=== PATIENT | male | born 1935 | race Caucasian/White ===

== ENCOUNTER 2024-11-25 08:34 | Day surgery (SDC) | payer OTHER, SELFPAY ==
[2024-11-25] VITALS (23 sets, daily range): BP systolic 134–170; BP diastolic 86–132; BMI 27.1
[2024-11-25] MEDS: NSS 242 ML IV (09:50)
--- NOTE | 2024-11-25 10:10 | CONSULT.STRU ---
Consultation
-
Date/Time Consultation Requested: 11/25/2024
Date/Time Consultation Performed: 11/25/2024
Requesting Provider: Mauri King MD
Performing Provider: GAVIN Wu
Reason for Consultation: /TAVR
Patient History
Physicians
Family Physician: Cortes Hedrick MD
Outpatient Black Oxide Operator: Augustin Watts MD
Primary Black Oxide Operator: Augustin Watts MD
History of Present Illness
Mr. Isaacs is a very pleasant 88 yom with a complex medical history including severe , CVA, CKD3, diverticular GIB, AAA repair, RCIA aneurysm repair, (R) CEA, and AFib. His echocardiogram from 07/27/2024 is notable for: EF 50-55%, AV P/M 49/35, NIDA
0.6, DI 0.15, mild MAC, mild MR, mild- moderate TR RVSP 35. From a symptomatology standpoint, pt describes increased KEARNS/SOB, and fatigue that has become worse over the last several weeks. He also states he has LE edema that he manages with
furosemide. Mr. Isaacs denies palpitations, CP, lightheadedness, PND, or claudication. However, he does state [place] and he has found that he has not been able to tolerate that over the last month
d/t fatigue. Discussed the pathophysiology and treatment options of aortic stenosis including SAVR and TAVR. Explained the evaluation process comprising of frequent lab work to monitor renal function, staged CT scan with OID, patient is edentulous
and will not need dental clearance, CT surgical consult, and a heart team meeting. TAVR booklet, prescriptions, appointments, and contact information given to patient. Allowed for and answered questions at bedside.
Past Medical History
Past Medical History: Atrial Fib, CVA/TIA (2020), HTN, Valvular Disease (Aortic stenosis) and Other (HLD, AAA, iliac artery aneurysm, diverticular hemorrhage GIB, hiatal hernia, GERD, renal insufficiency)
Past Surgical History
Past Surgical History: Other (coil embolizxaton diverticular bleed, perc. repair RCIA(04/27), (R) carotid endartectomy (2004), AAA repair (1997))
Dental History
Patient is edentulous
Family History
Mother: at Age (101)
Father: at Age (66) and Cause of (PR)
Family Medical History: CAD, Cancer, Diabetes and Sudden
Social History
Alcohol: Daily (1 beer daily )
Drug: None
Tobacco: Non-Smoker
Personal:
Allergies
Allergy/AdvReac Type Severity Reaction Status Date / Time
Iodinated Contrast Media Allergy 'one big Verified 11/25/24 09:25
lump'
iodine Allergy Hives Verified 11/25/24 09:25
Home Medications
�Medication �Instructions �Recorded �Confirmed �Type
allopurinol 300 mg tablet 300 mg PO DAILY 11/14/21 11/25/24 History
atenolol 25 mg tablet 37.5 mg PO DAILY 11/14/21 11/25/24 History
cyanocobalamin (vitamin B-12) 1,000 mcg PO QPM 11/14/21 11/25/24 History
1,000 mcg tablet
ezetimibe 10 mg tablet 10 mg PO HS 11/14/21 11/25/24 History
finasteride 5 mg tablet 5 mg PO DAILY 11/14/21 11/25/24 History
furosemide 40 mg tablet 40 mg PO SUTUTHSA 11/14/21 11/25/24 History
pantoprazole 40 mg tablet,delayed 40 mg PO DAILY 11/14/21 11/25/24 History
release
potassium chloride 10 mEq 10 meq PO QPM 11/14/21 11/25/24 History
tablet,extended release(part/cryst)
tamsulosin 0.4 mg capsule 0.4 mg PO DAILY 11/14/21 11/25/24 History
atenolol 25 mg tablet 25 mg PO DAILY 11/25/24 11/25/24 History
atorvastatin 10 mg tablet 10 mg PO QPM 11/25/24 11/25/24 History
folic acid 1 tab PO QPM 11/25/24 11/25/24 History
STS%
STS %: 9.6
Review of Systems
-
History Source: Patient
General: Reports Fatigue
HEENT: Reports No Symptoms
Respiratory: Reports SOB and KEARNS
Cardiac: Reports Known Vascular Disease and Edema
Abdomen/GI: Reports No Symptoms
: Reports Frequency
Musculoskeletal: Reports No Symptoms
Skin: Reports No Symptoms
Neurological: Reports CVA ((history))
Physical Exam
Vital Signs
Temp 97.9 F 11/25/24 09:05
Temp route: Oral 11/25/24 09:05
Pulse 109 11/25/24 09:45
Resp Rate 22 11/25/24 09:45
Blood pressure 143/100 11/25/24 09:26
Blood pressure extremity used: Right upper arm 11/25/24 09:05
Position: Lying 11/25/24 09:05
MAP (cuff-Sandy Monitor) 112 11/25/24 09:26
SaO2 96 11/25/24 09:45
Oxygen Mode of Delivery Room air 11/25/24 09:05
Can the patient verbally communicate their pain? Yes 11/25/24 09:05
Actual Weight 80.7 kg 11/25/24 09:24
Body Mass Index (BMI) 27.1 11/25/24 09:24
Labs
11/25/2024
BUN/Cr: 33/1.9
GFR: 33.93
11/23/2024
HH: 9.9/30.6
BUN/Cr: 28/2.14
GFR: 29
Diagnostic Studies
ECHOCARDIOGRAM 07/27/2024
CONCLUSIONS
1. Biatrial enlargement
2. Concentric left ventricular hypertrophy.
3. Probably severe aortic stenosis.
4. Low normal left ventricular systolic function
5. Normal right ventricular systolic function
6. Mild pulmonary hypertension
Aortic Valve
Thickened and calcified, probably trileaflet, aortic valve that exhibits
restricted opening. There is a peak aortic valve gradient of 49 mmHg with a
mean of 35 mmHg. The aortic valve area is calculated at 0.6 cm2. The
dimensionless index is 0.15. These findings are suggestive of severe stenosis.
Procedure Type:�Isolated AVR
Perioperative Outcome Estimate %
Operative Mortality 9.06%
Morbidity & Mortality 20.5%
Stroke 2.28%
Renal Failure 10%
Reoperation 4.78%
Prolonged Ventilation 10.6%
Deep Sternal Wound Infection 0.08%
Long Hospital Stay (>14 days) 14.2%
Short Hospital Stay (<6 days)* 19.7%
Exam
General: Well Developed, Well Nourished, No Apparent Distress and Comfortable
HEENT: Normocephalic
Neck: Trachea Midline
Respiratory: Clear (anteriorly)
Cardiac: Irregular Rhythm and Murmur (II/ PEE)
GI: Soft, Non Tender and Non Distended
Rectal: Deferred by Provider
Skin: Warm and Dry
Neuro: Awake, Alert, Oriented and AO x 3
Extremities: Lower Level Edema
Psych: Calm
Assessment / Plan
-
Aortic Stenosis
Continue with TAVR evaluation
Trend creatinine after contrast
TAVR CT scan (staged w/ OID d/t CKD) 12/13, CONTRAST ALLERGY (RX given)
CT surgical consult (MPT /)
Frailty testing and KCCQ 12 at consult
Dental clearance--pt is edentulous
Will need to initiate aspirin
Heart team discussion
Data Reviewed
-
Ambulatory Technologist: Report Reviewed by me and Discussed with Physician
Echo: Report Reviewed by me and Discussed with Physician
Labs: Labs Reviewed by me
Old Records: Reviewed (Drs. King and Stefanie's office notes)
Total Time Spent with Patient (in minutes): 45
[2024-11-25 10:16] LABS: Blood Urea Nitrogen 33 mg/dl (9-20); Calcium 8.9 mg/dl (8.4-10.2); Carbon Dioxide 25 mmol/L (22-30); Chloride 107 mmol/L (98-107); Estimated Creatinine Clearance 27 ml/min; Glucose 118 mg/dl (70-99); Potassium 4.3 mmol/L (3.5-5.1); Sodium 142 mmol/L (135-145); eGFR 33.93
--- NOTE | 2024-11-25 10:24 | PTCARENOTE ---
Dr King made aware of pt's repeat creatinine 1.9 (2.1 on 11/22/2024). Dr King at pt bedside speaking to pt. No further treatment ordered at this time.
--- NOTE | 2024-11-25 12:30 | PTCARENOTE ---
Pt's diastolic blood pressure is elevated. Instructed pt's right heart pressures are elevated. Lasix IVP ordered to be given. Will follow orders and continue to monitor.
--- NOTE | 2024-11-25 12:35 | PTCARENOTE ---
Gretta ALONSO at pt bedside speaking to pt about TAVR.
[2024-11-25] MEDS: LASIX 40 MG IV (12:36)
--- NOTE | 2024-11-25 13:19 | PTCARENOTE ---
Pt's blood pressure has been 139-161/98-132. Pt denies headache, dizziness, lightheadedness, chest pain and or SOB at this time. Irina Miguel NP made aware. Irina Miguel NP states she spoke to Dr King at only treatment ordered at this time is lasix
(previously given). Will continue to monitor pt.
--- NOTE | 2024-11-25 14:35 | PTCARENOTE ---
Verbal discharge instruction given to pt's daughter in law via telephone (pt's daughter in law on speaker phone with pt at pt bedside. Pt's daughter in law (an RN) also made aware of pt's elevated diastolic blood pressure. Pt's daughter in law
verbalized understanding of above.
--- NOTE | 2024-11-25 15:03 | PTCARENOTE ---
Spoke to Dr King about pt's blood pressure. Dr King states he will be in to speak to pt in about half an hour. Pt and pt's grand daughter made aware. Will continue monitor.
--- NOTE | 2024-11-25 15:45 | PTCARENOTE ---
Dr King at pt bedside assessing pt and speaking to pt. Dr King aware of pt's blood pressures all day. Pt remains asymptomatic at this time. Dr King states he spoke to pt's primary card tape converter operator and a plan is in place. No treatment ordered at
this time. Will continue to monitor.
--- NOTE | 2024-11-25 15:50 | PTCARENOTE ---
Dr King states pt ok for discharge.
--- NOTE | 2024-11-25 15:53 | PTCARENOTE ---
Pt's daughter in law arrived to pt's bedside. Pt's daughter in law aware of pt's blood pressures as well and Dr King evaluated pt. Written discharge instructions, including TAVR instructions, given to pt's daughter in law. Pt's daughter in law
verbalized understanding of instructions given. Questions encouraged and answered.
--- NOTE | 2024-11-25 17:05 | ITS.CL.PN ---
Manager Salt - Procedure Note
Procedure
Procedure Note:
CARDIAC CATHETERIZATION REPORT
Date of Procedure: 11/25/2024
Referring: Dr. Augustin Watts MD
Indication: severe aortic stenosis
PROCEDURE(S)
1. right heart catheterization
2. left heart catheterization
3. coronary angiography
ACCESS
1. 6F right radial artery (closure: radial band)
2. 5F right antecubital vein (closure: manual hemostasis)
CATHETERS
1. 5F [place]
2. 6F JR4
3. 6F JL3.5
4. 6F [place] (valve crossed with Adame wire and JR4 from right radial)
MODERATE SEDATION: 60 minutes of moderate sedation was utilized. An independent medical secretary was present to assist with and help manage the patient's level of consciousness and physiologic status.
ULTRASOUND GUIDED VASCULAR ACCESS (right brachial vein): Ultrasound was utilized for vascular access. The vessel was visualized under ultrasound and noted to be patent. An image of the vessel was stored permanently in the patient's medical record.
Under direct ultrasound guidance, vascular access was obtained using a modified Seldinger technique and a 5 Japanese sheath was placed.
ULTRASOUND GUIDED VASCULAR ACCESS (right radial artery): Ultrasound was utilized for vascular access. The vessel was visualized under ultrasound and noted to be patent. An image of the vessel was stored permanently in the patient's medical record.
Under direct ultrasound guidance, vascular access was obtained using a modified Seldinger technique and a 6 Japanese sheath was placed.
HEMODYNAMIC DATA
LV 180/22 (EDP 32) mmHg
AO 165/122 (mean 141) mmHg
RA 27 mmHg
RV 62/18 (EDP 22) mmHg
PA 65/36 (49) mmHg
PCWP 35 mmHg
SaO2 95.2 %
SvO2 50.6 %
Hb 10.0 g/dL
CO/CI 4.0/2.1 L/min/m2
SVR 2272 dsc*-5
PVR 3.5 Wood units
MG (averaged over 5 beats) 28 mmHg
NIDA 0.73 cm2
SVI 23.7 (HR 87)
CORONARY ANGIOGRAPHY
Dominance: right
LM: Large with mild disease
LAD: Large vessel giving rise to a moderate caliber branching ramus/D1 and and moderate caliber D2. There is mild nonobstructive disease.
LCx: Large vessel with proximal ectasia giving rise to a small OM1, large OM2, and several small LPL branches. There is mild nonobstructive disease.
RCA: Large vessel with a proximal HOSPITAL CLEANING SPECIALIST. There is a large bridging collateral which supplies antegrade flow to the mid to distal RCA. There is competitive flow visualized in the distal vessel. There are robust flmb-to-hferb collaterals filling the
RPL system.
RADIATION: dose 977 mGy; DAP 71.96 Gy*cm2; fluoroscopy time 14.2 min
CONCLUSIONS
1. severely elevated biventricular filling pressures, severe predominantly post-capillary pulmonary hypertension, and mildly reduced cardiac output
2. single vessel obstructive coronary artery disease in a right dominant system with RCA HOSPITAL CLEANING SPECIALIST with robust R-R and L-R collaterals
3. aortic valve study with severe, low-flow low-gradient aortic stenosis (MG 28 mmHg, NIDA 0.73 cm2, SVI 23.7 mL/m2)
RECOMMENDATIONS
1. expectant management after cardiac catheterization via right radial artery approach
2. continue workup for TAVR with CTA chest and lower extremities split to reduce contrast load
3. increase Lasix to 80 mg PO daily and consider further GDMT for HFpEF including SGLT2i
Copy to: Dr. Augustin Watts MD (back tender cylinder); Dr. Flor Bellamy DO (PCP)
Signed: Mauri King MD, PhD
== END 2024-11-25 16:02 | disposition home or self-care (01) ==
LOC: CATH 08:34
PROVIDERS: Nurse Practitioner; ATTENDING PHYSICIAN Student in an Organized Health Care Education/Training Program; FAMILY PHYSICIAN Family Medicine; OTHER PHYSICIAN Internal Medicine Cardiovascular Disease
DX: I35.0 Nonrheumatic aortic (valve) stenosis (principal); I25.10 Atherosclerotic heart disease of native coronary artery without angina pectoris; I27.29 Other secondary pulmonary hypertension; I25.82 Chronic total occlusion of coronary artery; I50.32 Chronic diastolic (congestive) heart failure; I12.9 Hypertensive chronic kidney disease with stage 1 through stage 4 chronic kidney disease, or unspecified chronic kidney disease; N18.30 Chronic kidney disease, stage 3 unspecified; I48.91 Unspecified atrial fibrillation; Z86.73 Personal history of transient ischemic attack (TIA), and cerebral infarction without residual deficits; Z86.79 Personal history of other diseases of the circulatory system; R53.83 Other fatigue; R06.09 Other forms of dyspnea; R06.02 Shortness of breath; Z79.899 Other long term (current) drug therapy; R60.0 Localized edema; E78.5 Hyperlipidemia, unspecified; K21.9 Gastro-esophageal reflux disease without esophagitis; I72.3 Aneurysm of iliac artery; Z87.19 Personal history of other diseases of the digestive system; Z83.3 Family history of diabetes mellitus; Z82.49 Family history of ischemic heart disease and other diseases of the circulatory system; Z91.041 Radiographic dye allergy status
CPT/HCPCS: 99152; 99153; 76937; 80048; 93460; C1769; C1894; Q9967

== ENCOUNTER 2024-12-13 08:36 | Outpatient (RCR) | payer OTHER, SELFPAY ==
[2024-12-13 08:46] VITALS: BP 126/90
--- NOTE | 2024-12-13 11:05 | PTCARENOTE ---
After patient arrived and IV started patient stated that did not take premeds for CT scan. Pt handed RN script that was never filled for prednisone dose series and benadryl for prior to CT scan. Spoke with Elizabeth Roman NP and was instructed that
Pt would have to have CT scan rescheduled. Reviewed need to have Pt take pre meds when rescheduled with both Pt and son.
== END 2024-12-16 23:59 | disposition home or self-care (01) ==
LOC: OID 08:36
PROVIDERS: ATTENDING PHYSICIAN Nurse Practitioner Acute Care
DX: I35.0 Nonrheumatic aortic (valve) stenosis (principal); Z92.89 Personal history of other medical treatment; Z53.09 Procedure and treatment not carried out because of other contraindication

== ENCOUNTER 2024-12-23 07:29 | Outpatient (RCR) | payer OTHER, SELFPAY ==
[2024-12-23] MEDS: NSS 500 IV (08:39)
[2024-12-23 08:43] VITALS: BP 136/79
[2024-12-23 11:25] VITALS: BP 143/100
== END 2024-12-26 08:59 | disposition home or self-care (01) ==
LOC: OID 07:29
PROVIDERS: ATTENDING PHYSICIAN Nurse Practitioner Acute Care
DX: I35.0 Nonrheumatic aortic (valve) stenosis (principal); I48.91 Unspecified atrial fibrillation
CPT/HCPCS: 96360; 96361

== ENCOUNTER → 2024-12-23 09:09 | Outpatient (REF) | payer OTHER, SELFPAY | LOC: RAD 09:09 | PROVIDERS: ATTENDING PHYSICIAN Nurse Practitioner Acute Care | DX: I35.0 Nonrheumatic aortic (valve) stenosis (principal) | CPT/HCPCS: 75572; Q9967 ==

== ENCOUNTER 2025-01-06 08:26 | Outpatient (RCR) | payer OTHER, SELFPAY ==
[2025-01-06 08:45] VITALS: BP 138/91
[2025-01-06] MEDS: NSS 500 IV (09:00)
== END 2025-01-16 23:59 | disposition home or self-care (01) ==
LOC: OID 08:26
PROVIDERS: ATTENDING PHYSICIAN Nurse Practitioner Acute Care; FAMILY PHYSICIAN Family Medicine
DX: I35.0 Nonrheumatic aortic (valve) stenosis (principal)
CPT/HCPCS: 96360; 96361

== ENCOUNTER → 2025-01-06 09:58 | Outpatient (REF) | payer OTHER, SELFPAY | LOC: RAD 09:58 | PROVIDERS: ATTENDING PHYSICIAN Nurse Practitioner Acute Care | DX: I35.0 Nonrheumatic aortic (valve) stenosis (principal) | CPT/HCPCS: 74174; Q9967 ==

== ENCOUNTER 2025-02-09 09:34 | Inpatient (IN) | payer OTHER, SELFPAY ==
--- NOTE | 2025-02-02 07:24 | HPS.HSE ---
Family Physician
-
Family Physician: Flor Bellamy, DO
Chief Complaint
-
KEARNS/Fatigue
PreTAVR evaluation
History of Present Illness
Mr. Isaacs is a very pleasant 88 yom with a complex medical history including severe , CVA, CKD3, diverticular GIB, AAA repair, RCIA aneurysm repair, (R) CEA, and AFib. His echocardiogram from 07/27/2024 is notable for: EF 50-55%, AV P/M 49/35, NIDA
0.6, DI 0.15, mild MAC, mild MR, mild- moderate TR RVSP 35. From a symptomatology standpoint, pt describes increased KEARNS/SOB, and fatigue that has become worse over the last several weeks. He also states he has LE edema that he manages with
furosemide. Mr. Isaacs denies palpitations, CP, lightheadedness, PND, or claudication. However, he does state he would socialize at the [employer] frequently with his friends and he has found that he has not been able to tolerate that over the last month
d/t fatigue. Discussed the pathophysiology and treatment options of aortic stenosis including SAVR and TAVR. Patient has been evaluated by the heart team and recommended for left transfemoral TAVR utilizing a 29mmS3. He is scheduled for TAVR on
02/09/2025. Mr. Isaacs will be premedicated with prednisone for contrast allergy and he will resume 81mg aspirin post TAVR. Allowed for and answered questions to the best on my knowledge.
Medical History
Past Medical History
Past Medical History: Reports Arrhythmia (Afib), GERD (with esophagitis), HTN, Valvular Disease (aortic stenosis) and Other (hyperlipidemia, AAA, iliac artery aneurysm, diverticular hemorrhage, hiatal hernia, renal insufficiency, anemia, GIB)
Past Surgical History: Reports Other (coil embolization diverticular bleed, percutaneous repair of RCIA aneurysm, right carotid endarterctomy, AAA repair)
Social History
Tobacco: Non-smoker
Alcohol: Daily (1-2 beers)
Drug: None
Personal:
Living: Alone
Employment: Retired
Family History
Family History: Not pertinent
Allergies / Home Medications
Allergies reflects when Allergies were last updated in [facility].
iodinated contrast media
Home Medications with original date entered in [facility]
Allopurinol 300 MG Tablet 1 tablet Orally Once a day
Aspirin 81(Aspirin) 81 MG Tablet Chewable 1 tablet Orally Once a day
Atenolol 25 MG Tablet TAKE 1 AND 1/2 TABLETS ONE TIME DAILY and 1 tablet 25 mg in pm
Atorvastatin Calcium 10 MG Tablet 1 tablet Orally Once a day
B-12 100 MCG Tablet 1 tab Orally Once a day
Finasteride 5 MG Tablet 1 tablet Orally Once a day
Folic Acid 1 MG Tablet 1 tablet Orally Once a day
Furosemide 40 MG Tablet 2 tablet
Potassium Chloride ER 10 MEQ Capsule Extended Release 1/2 tablet Orally Once a Day
predniSONE 20 MG Tablet Take 2 tablets the night before and the morning of the procedure Orally
Protonix(Pantoprazole Sodium) 40 MG Tablet Delayed Release 1 tablet Orally Once a day
Tamsulosin HCl 0.4 MG Capsule 1 capsule Orally Once a day
Allergy/Medication List:
iodinated contrast media, iodine
Review of Systems
-
Constitutional: Reports Fatigue
EENT: Reports No Symptoms
Respiratory: Reports Other (KEARNS)
Cardiac: Reports No Symptoms
Abdomen/GI: Reports No Symptoms
: Reports No Symptoms
Musculoskeletal: Reports No Symptoms
Neurological: Reports No Symptoms
Psych: Reports No Symptoms
Physical Exam
Physical Exam
General: Well Developed, Well Nourished, No Apparent Distress and Comfortable
HEENT: NormoCephalic
Respiratory: Clear
Cardiac: Irregular Rhythm and Murmur (III/)
Breast: Deferred by me
GI: Soft, Non Tender and Non Distended
Rectal: Deferred by Provider
Genito-urinary: Deferred by me
Musculoskeletal: No Edema
Skin: Warm and Dry
Neuro: Awake, Alert and Oriented
Psych: Calm
Data Reviewed
-
Diagnostic Radiology: Report Reviewed by me
CT Scan: Report Reviewed by me and Discussed with Physician (reviewed with the heart team)
Medical Tests (Nuc Med, Echo, EKG etc): Report Reviewed by me and Discussed with Physician (cardiac catheterization and echocardiogram reviewed with the heart team)
Lab Data: Labs Reviewed by me
Old Records: Reviewed
Impression/Plan
-
IMPRESSION/PLAN:
Aortic stenosis
TF TAVR planned for 02/09 utilizing a 29 mm S3 with Drs. North and Christine
Patient will be pre-medicated with prednisone and Benadryl before procedure
Resume aspirin 81 mg post TAVR
POD#1/#30 echocardiogram
Cardiac Rehab consult
[2025-02-02 11:58] VITALS: BMI 29.2
[2025-02-02 12:54] LABS: % Basophils 2.3 % (0-2); % Eosinophils 4.2 % (0-6); % Immature Granulocytes 0.6 % (0-0.5); % Monocytes 12.2 % (1.7-9.3); % Neutrophils 69.7 % (42.2-75.2); Absolute Basophils 0.1 10^3/uL (0-0.2); Absolute Eosinophils 0.2 10^3/uL (0-0.7); Absolute Lymphocytes 0.4 10^3/uL (1.2-3.4); Absolute Monocytes 0.4 10^3/uL (0.1-0.6); Absolute Neutrophils 2.5 10^3/uL (1.4-6.5); Hematocrit 31.3 % (39.0-52.0); Hemoglobin 10.5 g/dL (13.0-18.0); Mean Corp Hgb Conc. 33.5 g/dL (33.0-37.0); Mean Corpuscular Hgb 37.8 pg (27.0-31.0); Mean Corpuscular Volume 112.6 fL (80.0-94.0); Mean Platelet Volume 9.8 fL (7.4-10.4); Platelet Count 173 10^3/uL (130-400); Red Blood Cell Count 2.78 10^6/uL (4.70-6.10); Red Cell Dist. Width 19.7 % (11.5-14.5); White Blood Cell Count 3.5 10^3/uL (4.8-10.8)
[2025-02-02 13:04] LABS: INR 1.21; PT 15.8 Sec (11.4-14.6)
[2025-02-02 13:05] LABS: APTT 31.6 Sec (23.4-35.0)
[2025-02-02 13:06] LABS: Urine Albumin Negative (Neg - Trace); Urine Bilirubin Negative (Negative); Urine Character Clear (Clear); Urine Color Yellow; Urine Glucose Negative (Negative); Urine Ketone Negative (Negative); Urine Leukocyte Negative (Negative); Urine Nitrite Negative (Negative); Urine Occult Blood Negative (Negative); Urine Urobilinogen 3+ (Neg - 1+); Urine pH 6.5 (5.0-9.0)
[2025-02-02 13:12] LABS: ALT (SGPT) 13 U/L (0-50); AST (SGOT) 23 U/L (17-59); Albumin 4.2 g/dl (3.5-5.0); Alkaline Phosphatase 120 U/L (38-126); Blood Urea Nitrogen 32 mg/dl (9-20); Calcium 8.9 mg/dl (8.4-10.2); Carbon Dioxide 29 mmol/L (22-30); Chloride 104 mmol/L (98-107); Direct Bilirubin 1.5 mg/dl (0.0-0.4); Estimated Creatinine Clearance 22 ml/min; Glucose 104 mg/dl (70-99); Potassium 3.8 mmol/L (3.5-5.1); Sodium 143 mmol/L (135-145); Total Bilirubin 4.3 mg/dl (0.2-1.3); Total Protein 6.8 g/dl (6.3-8.2)
[2025-02-02 13:21] LABS: NT-proBNP 6090 pg/ml
--- NOTE | 2025-02-02 13:34 | CM ---
Chart reviewed. Met with the patient in PAT. Reviewed preoperative and postoperative instructions and restrictions, along with showering guidelines. Gave patient TAVR Book. Patient is agreeable to a home visit by CT Transitional RN. Patient is
independent of ADLS, lives alone in a apartment, elevator access, 0 DME. Patient's son lives close by. Plan is for the patient to return home with CT Transitional RN.
[2025-02-02 14:02] LABS: Glycohemoglobin (HgbA1c) 5.6 % (4.0-5.6)
[2025-02-09] VITALS (11 sets, daily range): BP systolic 118–141; BP diastolic 72–105; BMI 29.5
--- NOTE | 2025-02-09 11:29 | W.CVOR.SURPR ---
CVOR Surgeon Immed Pre Op
-
I have examined this patient prior to performance of the scheduled procedure.
The patient's condition is unchanged from the time of the dictated/written History and
Physical and the patient is able to undergo the scheduled procedure.
TF TAVR, Full Rescue
[2025-02-09] MEDS: ANCEF 10 IV ×2 (13:05)
--- NOTE | 2025-02-09 13:46 | CM ---
Chart reviewed. Patient is in the OR today. Patient is independent of ADLS, lives alone in a apartment, elevator access, 0 DME. Plan is for the patient to return home with CT Transitional RN. CM to follow
[2025-02-09 14:29] LABS: ACT-LR - POC 311 Seconds (116-155)
[2025-02-09 14:45] LABS: ACT-LR - POC 216 Seconds (116-155)
[2025-02-09 14:56] LABS: ACT-LR - POC 269 Seconds (116-155)
--- NOTE | 2025-02-09 15:19 | W.PN.CT.SURG ---
CT Surgery Operative Note
-
OPERATIVE REPORT
Preoperative Diagnosis: Severe low flow low gradient aortic valve stenosis, symptomatic
Postoperative Diagnosis: Same
Procedure(s) Performed:
1. Trans femoral TAVR with a 29 mm valve +2 cc (with postdilatation BAV) Jack TAVR valve
Date of Procedure: 02/09/25
Comorbidities:
1. Severe aortic stenosis, low-flow low gradient, depressed left ventricular ejection fraction
2. Peripheral vascular disease
3. Abdominal aortic aneurysm status post repair
4. Hypertension
5. Hyperlipidemia
6. Iliac artery aneurysm
7. Diverticular hemorrhage, contraindication to anticoagulation
8. Atrial fibrillation
9. Hiatal hernia
10. GERD
Cardiac Surgeon: Nima North MD, MS
Compressor Operator: uJde King MD
Anesthesia: Conscious Sedation and Local Analgesia, LMA inserted after deployment of the valve
EBL: 200cc
Products: none
Implant: 29 mm, nominal +2, Jack Layne TAVR valve, SN: Serial #[id number]
Indication(s) for Procedures: 89-year-old male with symptomatic severe aortic stenosis, low-flow low gradient. CT-TAVR protocol revealed acceptable anatomy for TAVR access and implantation.
Start time: 1312hrs
Deployment time: 1439hrs
End time: 1312hrs
Radiation Dose (mGy): 142.05
DAP (cm2.Gy): 142.05
Fluoroscopy time (minutes): 36
Contrast volume (ml): 108 visi
TAVR gradient (mmHg): 4mmHg
Heparin Dose: 6500 + 2000units
Final Valve Positionin/10
Findings: Preoperative LVEF was 40% and was 40% following TAVR with levo at 5. Function was overall stable without new regional wall motion abnormalities or dyskinesia. Following the initial deployment of the 29 mm valve, the valve did not appear
to be evenly shortened and there was a mild to moderate paravalvular leak along the aorto mitral curtain. We opted to reaccessed the valve using a J-wire leaving the device in place. We then crossed the valve and then pushed the device balloon
back across the valve with ease. We then added 2 cc to the balloon and under rapid pacing we reinflated to perform a balloon valvuloplasty with good effect. There is notable shortening of the greater curvature side of the valve. Follow-up
transthoracic echocardiogram demonstrated less paravalvular leak, grade was trace to mild with a mean gradient of 4 across the valve. After all the manipulation, I did develop a bundle branch block requiring intermittent pacing. While he was slow
junctional rhythm, his blood pressure did suffer and required pacing up to a rate of 80. There was some difficulty in threading and tracking of the pigtail catheter from the right radial and so the angiogram was somewhat suboptimal. However when
we dopplered his lower extremities he had equal biphasic signals. There was successful placement of 29 mm, nominal +2 TAVR valve without acute major complications. He did have to have an LMA inserted at the end of the case in order to recruit as
he was somewhat hypoxic, this is planned to be removed following procedure. The temporary pacing wire was left in place as his intermittent pacing was required and a line was left in place as well.
Access:
1. Device -left common femoral artery, perclose x 2
2. Pigtail -right radial plus TR band
3. Transvenous Pacer -right common femoral vein
4. 6 Thai sheath was also inserted initially into the right common femoral artery as our attempted pigtail site where we had difficulty in traversing the stent at the proximal opening
Description of Procedure: The patient was taken to the laboratory technology teacher. Their identity and procedure to be performed were verified and they were positioned supine on the laboratory technology teacher table. Induction via conscious sedation. The patient was then prepped and
draped from chin to thigh in a sterile fashion. A preoperative time-out was performed with all members of the team present. Arterial and venous access was performed using fluoroscopy and ultrasound guidance with micropuncture and Seldinger
technique. Two perclose devices were used on the device side followed by access to the aorta with a stiff wire to facilitate E-sheath placement this was done after serial dilatations and placement of a Lunderquist wire as his [place] iliofemoral
system was very tortuous. Heparin was given. A stiff straight wire and AL-1 catheter was used to cross the aortic valve. The stiff wire was exchanged for a Lunderquist wire as he had very tortuous vessels and we needed the support of a stiffer rail.
The valve was prepped and mounted on to the device carrier. An ACT of >250 was achieved. We verified x 3 that the valve was mounted in the correct orientation with the skirt of the valve directed toward the tip of the device carrier. We advanced the
device into the descending thoracic aorta where the valve was them mounted onto the balloon under fluoroscopy. The device was flexed and advanced over the arch into the root and positioned across the aortic valve. Contrast fluoroscopy was used to
visualize the prosthesis across the valve and to guide positioning. A pigtail catheter in the RCC as used as a guide. We aimed to have the bottom of the device marker at the annular hinge point. The device sheath was pulled back. We performed a
quick pre-deployment time out. The pacer was turned on and had capture. Blood pressure fell accordingly, angiography was done to verify the intended final placement and the valve was deployed with 5 seconds of rapid pacing to nominal volume. The
balloon was deflated and the pacer was turned off. We had recovery of vitals. The device carrier was unflexed and positioned back in the descending thoracic aorta. A transthoracic echocardiogram was performed. There was at least a mild to moderate
degree of paravalvular insufficiency and so we added 2 cc to the device balloon and exchanged the stiff wire for a J-wire. We were able to cross the valve easily with a J-wire and then advanced the device back into the LVOT. We then exchanged the
J-wire for a Super Stiff wire. Under rapid pacing once again we had capture and followed vital signs at this point we inflated the balloon with the additional 2 cc with good visual shortening of the valve. Follow-up transthoracic echocardiogram
demonstrated an improvement in the paravalvular leak. We then brought the device back after on flexing it and placing it in the descending thoracic aorta. The device was removed from the E-Sheath maintaining wire access followed by removal of the
E-sheath as we cinched down the perclose devices. There was acceptable hemostasis. The pigtail was positioned into the descending thoracic aorta however given the tortuosity of his [place] vessels, we were unable to advance the pigtail further down
the towards his bifurcation. Completion aortogram with runoff run-off angiography was performed. There was no obvious stenosis or dissection of bilateral iliofemoral systems. There was acceptable hemostasis of bilateral groins and manual pressure
was held following wire removal. Of note, once the sheath was removed he did have a period in which she was hypotensive and hypoxic requiring LMA intubation in order to recruit. He was responsive to vasoactive agents. Given the intermittent
requirement of pacing, we left the temporary venous pacing wire in place along with the femoral 6 Thai sheath as an arterial line for monitoring.
All instrument, sponge, and needle counts were confirmed to be correct x 2 at the end of the operation. The patient was transferred to the cardiac intensive care unit in stable condition.
I, Dr. Nima North, was present, scrubbed for, and performed all critical elements of this procedure.
Nima North MD
Cardiothoracic Surgeon
[facility]
This operative dictation was created using the [employer] dictation system. Please excuse any grammatical, typographical, or 'sound alike' errors
--- NOTE | 2025-02-09 16:37 | W.PN.UPDATE ---
Update Note
Progress Note Update
Arrived in CVICU status post TAVR #29 Jack with post dilation BAV for paravalvular leak. Patient off Levophed on arrival to CVICU. O2 saturation 98% on nonrebreather, patient weaned to nasal cannula. Right femoral venous sheath with
transvenous pacer at 45 VVI setting. Patient's heart rhythm is chronic atrial fibrillation at 70 bpm underlying with occasional PVCs and couplets. BMP and magnesium pending. Patient with known CKD 3 (baseline creatinine 2.1). Currently holding
amiodarone (chronic A-fib) and beta-denita. Right radial TR band intact. Wean off per protocol. Right femoral A-line intact w/ BP 126/78. .
[2025-02-09 16:43] LABS: Hematocrit 28.4 % (39.0-52.0); Hemoglobin 9.2 g/dL (13.0-18.0); Mean Corp Hgb Conc. 32.4 g/dL (33.0-37.0); Mean Corpuscular Hgb 37.4 pg (27.0-31.0); Mean Corpuscular Volume 115.4 fL (80.0-94.0); Mean Platelet Volume 10.1 fL (7.4-10.4); Platelet Count 147 10^3/uL (130-400); Red Blood Cell Count 2.46 10^6/uL (4.70-6.10); Red Cell Dist. Width 19.6 % (11.5-14.5); White Blood Cell Count 5.5 10^3/uL (4.8-10.8)
[2025-02-09 16:47] LABS: PT 17.7 Sec (11.4-14.6)
[2025-02-09 16:48] LABS: APTT 34.5 Sec (23.4-35.0)
[2025-02-09 16:49] LABS: Blood Urea Nitrogen 32 mg/dl (9-20); Calcium 7.9 mg/dl (8.4-10.2); Carbon Dioxide 26 mmol/L (22-30); Chloride 108 mmol/L (98-107); Estimated Creatinine Clearance 31 ml/min; Glucose 170 mg/dl (70-99); Magnesium 1.7 mg/dl (1.6-2.3); Potassium 4.2 mmol/L (3.5-5.1); Sodium 140 mmol/L (135-145); eGFR 41.44
--- NOTE | 2025-02-09 17:00 | PTCARENOTE ---
Patient received from [facility] at 1610; AAOx1, patient very drowsy; VSS; Afib with PVC's and LBBB on monitor; Transvenous V-wire with initial setting VVI 60/13/0.8 but changed to VVI 30/13/0.8 as per CVNELSON Ortiz; +2 radial and left DP pulses,
Doppler right DP pulse; Shallow respirations; SpO2 97-99 on 6L NC; Hypoactive BS; DTV; Surgical puncture sites intact; TR band on right radial access site; PIVx2; Right venous sheath with KVO infusing; Right femoral arterial site with transducer;
See nursing documentation for further details.
--- NOTE | 2025-02-09 17:00 | ITS.CL.PN ---
Doctor Of Pharmacy - Procedure Note
Procedure
Procedure Note:
TRANSCATHETER AORTIC VALVE REPLACEMENT REPORT
Date of Procedure: 02/05/25
Referring: Dr. Augustin Watts MD
Indication: Severe symptomatic aortic stenosis
Operators: Mauri King MD, PhD (interventional cardiology); Dr. Nima North MD (CT surgery)
Anesthesia: conscious sedation provided by the anesthesia staff
PROCEDURE: transfemoral, transcatheter aortic valve replacement with a Jack Layne S3 Ultra 29 mm valve, post-deployment balloon aortic valvuloplasty was performed with addition 2 ccs of volume
ACCESS:
1. 6F right femoral vein (sutured in place)
2. 6F right common femoral artery (sutured in place)
3. 6F right radial artery (closure: radial band)
3. 16F left common femoral artery (closure: Perclose x2)
HEMODYNAMIC DATA
LV 18 mmHg
PROCEDURE NARRATIVE:
The patient was prepped and draped in standard sterile fashion. Conscious sedation was provided by the anesthesia staff. 6F right femoral vein and right common femoral artery access was obtained with ultrasound guidance using micropuncture technique
with verification of appropriate arteriotomy location via hand injection angiography. A temporary venous pacing wire was advanced via the right femoral vein to the right ventricle under fluoroscopic guidance with appropriate capture verified. A 5F
pigtail catheter could not be advanced via the right common femoral artery due to extreme tortuosity of the right iliac. This was despite use of a Tip wire and JR4 guide catheter. Instead 6 Gabonese right radial artery access was obtained and a 5
Gabonese pigtail seated in the right coronary cusp with angiography performed to verify the coplanar angle.
8F left common femoral artery access was obtained with ultrasound guidance using micropuncture technique with verification of appropriate arteriotomy location via hand injection angiography. The arteriotomy was preclosed with two Perclose sutures
followed by replacement of the 8F sheath. Due to extreme left iliac tortuosity, proximal wire access required use of a JR4 guide catheter and Tip wire later exchanged for a Lunderquist wire to straighten the tortuous segment. The 8F sheath was
removed and the 16F Jack E-sheath was inserted over the Lunderquist wire and into the descending aorta after dilation of the tract with the 16 Gabonese and 18 Gabonese dilators. Heparin 6500 units was given. The AL1 catheter was advanced through the
E-sheath to the level of the ascending aorta. The Lunderquist wire was exchanged for a soft tipped straight wire which was used to cross the aortic valve and deposit the AL1 in the LV apex. A J-wire was used to exchange the AL1 for a pigtail
catheter in the LV and LVEDP was measured. The Lunderquist wire was advanced through the pigtail catheter and seated in the LV apex. ACT was checked and confirmed to be >300 seconds.
The valve was brought to the table with orientation and deployment contrast volume verified. The valve was advanced over the Lunderquist wire and into the descending aorta. The balloon was withdrawn, and the valve was mounted on the balloon. The
valve was advanced over the aortic arch and into the aortic valve annulus. The pusher device was withdrawn. Low volume aortography confirmed valve positioning. The valve was deployed during rapid ventricular pacing. The balloon was walked back to
the descending aorta while leaving the wire in place. The patient was resuscitated by anesthesia with recovery of adequate blood pressure. Telemetry demonstrating new bundle branch block and Afib with slow ventricular response. Aortography
demonstrated good valve positioning, adequate coronary filling, but moderate aortic valve insufficiency. Echocardiography confirmed moderate aortic insufficiency. Mean valve gradient was 4 mmHg. The valve was recrossed with a J-wire through the nose
cone of the device. With careful attention paid to ensure the device was tracking smoothly it was readvanced across the valve after which the J-wire was exchanged for an Amplatz extra-stiff wire. BAV was performed with the delivery sheath balloon
with an extra 2 cc of volume. Afterwards, the balloon and delivery system were removed. Repeat echocardiography demonstrated now trace to mild AI and improvement in mean gradient to 3 mmHg.
The Jack E sheath was removed, and hemostasis obtained with the two Perclose sutures. The patient became relatively hypotensive at this point and bradycardic with slow ventricular response. A long pigtail catheter was used to perform power
injection angiography via the right radial artery of the descending thoracic aorta and iliac system which did not suggest vascular compromise. The patient was relatively hypoxic, and hemodynamics improved with placement of an LMA airway and moderate
dose norepinephrine. Protamine 50 mg was given. The pacemaker was left in place sutured. The right femoral artery sheath was left in place for monitoring.
RADIATION: dose 1236 mGy; DAP 142 Gy*cm2; fluoroscopy time 36.0
CONCLUSIONS
1. successful placement of an Jack Layne 29 mm S3 Ultra transcatheter aortic valve via left transfemoral approach with no acute complications
2. immediate post-deployment TTE demonstrated moderate AI, thus, BAV was performed with the valve delivery balloon with an additional 2 ccs of volume with improvement in AI to trace-mild
Copy to: Dr. Augustin Watts MD (rod mill tender); Dr. Flor Bellamy DO (PCP)
Signed: Mauri King MD, PhD
[2025-02-09] MEDS: NSS 500 VEN SHEATH (17:14)
[2025-02-09] MEDS: CALCIUM GLUCONATE 100 IV (17:59)
[2025-02-09] MEDS: MAGNESIUM SULFATE 100 IV (18:00)
[2025-02-09 18:13] LABS: ACT-LR - POC 128 Seconds (116-155)
--- NOTE | 2025-02-09 18:29 | W.PN.UPDATE ---
Update Note
Progress Note Update
No pacing required, maintaining AF 70-80s. Right femoral TVP wire and sheath removed without difficulty. Hemostasis achieved with manual pressure x 20 minutes.
--- NOTE | 2025-02-09 20:05 | PTCARENOTE ---
Right venous sheath and transvenous V-wire pulled at 1820 by JANINE Ortiz at bedside; Pressure held for 30 minutes; Drainage noted on left femoral arterial site and JANINE Ortiz notified and aware - marked at edges; TR band removed - 4x4
with tegaderm applied
[2025-02-09] MEDS: ANCEF 5 IV (20:32)
--- NOTE | 2025-02-09 22:00 | PTCARENOTE ---
Drainage noted on right femoral venous access site - CVPA Cody notified and aware; No hematoma noted; Patient kept lying flat; Site drainage marked; No further interventions at this time
[2025-02-10] VITALS (23 sets, daily range): BP systolic 75–135; BP diastolic 60–101; PULSE 82; O2SAT 92–98; BMI 29.5; BMI 30.2
--- NOTE | 2025-02-10 00:32 | PTCARENOTE ---
Received pt from previous RN; pt AAOx3 and forgetful at times; A-fib on monitor and VSS; Right Femoral A-line leveled and zeroed; PIV x2 patent; lungs diminished; hypoactive bowel sounds; pt voiding yellow urine; B/L groin sites with old drainage
and no hematoma noted; Left lower extremity pulses positive and Doppler right lower extremity pulse present; B/L radial pulses palpable; no edema noted; see nursing documentation for further details.
--- NOTE | 2025-02-10 01:17 | W.PN.CT ---
Today's Communication / Plan
-
-POD #1
-in PACU on 6 mcg of levophed and NRM, now off both
-post EKG with LBBB & QTc 518 ms.
-R fem TVP sheath DCd
-remains in afib overnight, no bradycardia or pauses
-echo today
-current meds atenolol held, asa, lasix, flomax, allopurinol, finasteride, ppi
-IS/mobilize when art sheath DCd
Assessment / Plan
-
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 North POD #1
Post-deployment TTE demonstrated moderate AI, thus, BAV was performed with the valve delivery balloon with an additional 2 ccs of volume with improvement in AI to trace-mild
1. Severe aortic stenosis, low-flow low gradient, depressed left ventricular ejection fraction
2. Peripheral vascular disease
3. Abdominal aortic aneurysm status post repair
4. Hypertension
5. Hyperlipidemia
6. Iliac artery aneurysm
7. Diverticular hemorrhage, contraindication to anticoagulation
8. Atrial fibrillation
9. Hiatal hernia
10. GERD
Subjective
Procedure
Trans femoral TAVR with a 29 mm valve +2 cc (with postdilatation BAV) Jack TAVR valve
-
Date of Service: February 10, 2025
Objective Data
-
PT 17.7 Sec (11.4-14.6) H 02/09/25 16:25
INR 1.40 02/09/25 16:25
APTT 34.5 Sec (23.4-35.0) 02/09/25 16:25
APTT Cancelled 02/09/25 16:25
Vital Signs
Vital Signs
Temp Pulse Resp BP Pulse Ox
97.6 F 87 13 133/87 99
02/10/25 00:00 02/10/25 00:25 02/10/25 00:25 02/10/25 00:00 02/10/25 00:38
CT Intake/Output/Weight
02/09/25 02/09/25 02/10/25
06:59 18:59 06:59
Intake Total 230 / 740 510 / 740
Output Total 275 / 275
Balance 230 / 465 235 / 465
SaO2: 99
Physical Exam
-
General: Awake, Oriented and AOx3
Cardiovascular: Irregular rate & rhythm, No Murmurs and No Rub
Respiratory: Clear and Equal
Incision: Clean and Weeping
Extremities: No Edema
Biphasic DP signal on RLE
Data Reviewed
-
Lab Results: Results Reviewed
Medications: Active Meds Reviewed
Chest X-Ray: Report Reviewed
ECG: Report Reviewed
--- NOTE | 2025-02-10 03:17 | PTCARENOTE ---
Assessment unchanged; A-fib on monitor and VSS; Labs, EKG and daily weight obtained; pt resting comfortably in bed.
[2025-02-10 03:28] LABS: Hematocrit 29.4 % (39.0-52.0); Hemoglobin 9.9 g/dL (13.0-18.0); Mean Corp Hgb Conc. 33.7 g/dL (33.0-37.0); Mean Corpuscular Hgb 37.1 pg (27.0-31.0); Mean Corpuscular Volume 110.1 fL (80.0-94.0); Platelet Count 163 10^3/uL (130-400); Red Blood Cell Count 2.67 10^6/uL (4.70-6.10); Red Cell Dist. Width 19.2 % (11.5-14.5); White Blood Cell Count 6.4 10^3/uL (4.8-10.8)
[2025-02-10 03:50] LABS: Blood Urea Nitrogen 36 mg/dl (9-20); Calcium 8.6 mg/dl (8.4-10.2); Carbon Dioxide 23 mmol/L (22-30); Chloride 108 mmol/L (98-107); Estimated Creatinine Clearance 28 ml/min; Glucose 151 mg/dl (70-99); Potassium 4.4 mmol/L (3.5-5.1); Sodium 142 mmol/L (135-145); eGFR 35.98
--- NOTE | 2025-02-10 07:39 | W.PN.ANS.POP ---
Anesthesia Post Operative
- Anesthesia Post Op Note
Vital Signs Stable-See Nursing Note: Yes
Airway Patent: Yes
Adequate Pain Control: Yes
Change in Mental Status: No
Current Postoperative Nausea & Vomiting: No
Anesthesia Complications: No
General Anesthetic Recall: No
Unplanned Admission: No
Post Op Hydration Adequate: Yes
[2025-02-10] MEDS: ZYLOPRIM 300 MG PO (09:23)
[2025-02-10] MEDS: FLOMAX 0.4 MG PO (09:23)
[2025-02-10] MEDS: LOW STRENGTH ASPIRIN 81 MG PO (09:23)
[2025-02-10] MEDS: PROSCAR 5 MG PO (09:24)
[2025-02-10] MEDS: PROTONIX 40 MG PO (09:24)
[2025-02-10] MEDS: LASIX 80 MG PO (09:24)
--- NOTE | 2025-02-10 10:21 | CM ---
Chart reviewed. Patient lying in bed. Patient is independent of ADLS, lives alone in a apartment, elevator access, 0 DME. Patient's son lives close by. Plan is for the patient to return home with CT Transitional RN. CM to follow
--- NOTE | 2025-02-10 10:52 | PTCARENOTE ---
Patient received from welder 2nd shift resting in bed, sleepy but arousable, denies pain. Slight intermittent confusion, easily reoriented. Afib via cm, SaO2 @ 94% on RA. Dr. King to bedside, updated to status. RFA sheath, d/c'd by PRASHANT Harley -
distal extremity warm, DP obtainable via doppler. Bedrest maintained. L groin site w/old drainage noted, soft, nontender, distal pulse palp. R wrist site cdi. Patient updated to plan of care, in agreement. See work list for full assessment and
interventions performed.
--- NOTE | 2025-02-10 11:51 | W.PN.UPDATE ---
Update Note
Progress Note Update
Rhythm star monitor given to patient to place after discharge. Reviewed with patient and nursing how to place the monitor, charge it, report symptoms and return after the 14 days. Allowed for and answered questions.
[2025-02-10] MEDS: TENORMIN 25 MG PO (11:59)
--- NOTE | 2025-02-10 12:04 | PTCARENOTE ---
VS obtained, assessment unchanged. B/L groin sites cdi. Patient worked w/CR, ambulated cavazos. PRASHANT Harley updated to VS, advised administer lower dose BB. Patient remains oob in chair, resting comfortably.
--- NOTE | 2025-02-10 12:48 | PTCARENOTE ---
received patient from CVICU, monitor placed Afib, BP 100/66, chair alarm on, patient forgets. left groin, old drainage on dsg. distal pulse by Doppler. right groin dsg. D/I, distal pulse by Doppler, trace edema noted bilaterally. oriented patient to
room and surroundings. patient presently sitting in chair, call gore within reach.
--- NOTE | 2025-02-10 15:12 | PTCARENOTE ---
whenever patient is up ambulating HR goes to the 140's. MD's aware as per CVICU nurse.
--- NOTE | 2025-02-10 19:15 | W.PN.CD ---
Today's Communication / Plan
-
doing well post TAVR
plan for discharge tomorrow with rhythm star monitor given new LBBB
Impression / Plan
-
89 year old man with severe LFLG s/p TV TAVR with 29 Jack Layne S3 Ultra (with +2 cc BAV), now POD #1. Complex procedure from an access standpoint given prior AAA repair and KATINA stenting. Post procedure briefly required LMA, quickly weaned.
Briefly had slow ventricular response post-procedure, never complete heart block. Post-procedure EKG with new LBBB.
Did well overnight. Fem lines removed this morning with hemostasis achieved.
Groin CDI.
Labs stable.
Echo today with stable valve appearance, normal EF.
Plan:
Transition from atenolol to metoprolol given lower blood pressure and to allow more room to titrate rate control
Monitor overnight with plan for discharge tomorrow pending successful ambulation and stable labs
Echo 02/10/2025
Normal LV size and function with no wall motion abnormalities.
LVEF is 55-60% by visual estimation.
Mild concentric left ventricular hypertrophy.
Dilated RV with normal appearing systolic function.
Mild to moderate eccentric mitral regurgitation.
29 mm Jack Layne TAVR. Peak/mean gradients across the aortic valve are 11/4
mmHg.
Trivial aortic regurgitation.
Moderate to severe tricuspid regurgitation.
Estimated pulmonary artery pressure of 45-50 mmHg. Assuming a right atrial
pressure of 3 mmHg.
Compared to prior from February 09, 2025, no significant change.
Physical Exam
Vital Signs/Labs
Vital Signs
Temp Pulse Resp BP Pulse Ox
36.4 C 60 16 105/63 98
02/10/25 18:23 02/10/25 18:23 02/10/25 18:23 02/10/25 15:05 02/10/25 18:23
02/09/25 02/10/25 02/11/25
06:59 06:59 06:59
Actual Weight 79.8 kg
02/10/25 03:12
02/10/25 03:11
PT 17.7 Sec (11.4-14.6) H 02/09/25 16:25
INR 1.40 02/09/25 16:25
APTT 34.5 Sec (23.4-35.0) 02/09/25 16:25
APTT Cancelled 02/09/25 16:25
Magnesium 1.7 mg/dl (1.6-2.3) 02/09/25 16:25
02/02/25
12:10
Yam-I-Ibbiyebqsmq Pept 6090
Physical Exam
Constitutional: No acute distress
Cardiovascular: Rhythm & rate is regular
Respiratory: Respiratory effort normal
Neuro/Psych: AO x 3
Data Reviewed
-
Date of Service: February 10, 2025
Medical Decision Making: Reviewed Test Results
EKG: Tracing Personally Visualized and interpreted
Echo: Tracing Personally Visualized and interpreted
Labs: Labs Reviewed by me
[2025-02-10] MEDS: LOPRESSOR 25 MG PO (19:51)
--- NOTE | 2025-02-10 19:58 | PTCARENOTE ---
Pt OOB to chair, denies pain or SOB, right groin CDI, left groin with some oozing marked from previous shift, no active bleeding noted, no swelling or bruising noted to groin sites, weak PP. A-fib on the monitor with HR 100's to 130-140's with
ambulation, asymtomatic. O2 sat 98% RA. Call gore within reach, chair alarm in place.
[2025-02-11] VITALS (21 sets, daily range): BP systolic 75–124; BP diastolic 47–96
[2025-02-11 04:31] LABS: Ionized Calcium 1.15 mMOL/L (1.15-1.33)
--- NOTE | 2025-02-11 04:53 | W.PN.CT ---
Today's Communication / Plan
-
Plan:
-No major issues overnight. Hemodynamically and neurologically in tact
-BP has been soft postop, improved tolerating BB
-In a-fib with RVR, no pauses. Atenolol switched to Metoprolol per Cardiology
-Postop new LBBB. Chronic a-fib, not on anticoagulation d/t hx of GI bleed, ASA only
-Repeat echo yesterday showed a well seated TAVR, PG/MG 08/22, trivial AI; mild-mod MR, mod-severe TR
-Groin C/D/I
-Cont. current meds (ASA, Lasix, Flomax, Finasteride, Protonix)
-Home today with R[employer]Star heart monitor
Assessment / Plan
-
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 North POD #2
Post-deployment TTE demonstrated moderate AI, thus, BAV was performed with the valve delivery balloon with an additional 2 ccs of volume with improvement in AI to trace-mild
1. Severe aortic stenosis, low-flow low gradient, depressed left ventricular ejection fraction
2. Peripheral vascular disease
3. Abdominal aortic aneurysm status post repair
4. Hypertension
5. Hyperlipidemia
6. Iliac artery aneurysm
7. Diverticular hemorrhage, contraindication to anticoagulation
8. Atrial fibrillation
9. Hiatal hernia
10. GERD
-Acute postop hypotension
-Acute postop new LBBB and prolonged QT
Discussed patient care with: Cardiology, Nursing, Respiratory Therapy, Pharmacy and Care Team
Subjective
Procedure
Trans femoral TAVR with a 29 mm valve +2 cc (with postdilatation BAV) Jack TAVR valve
-
Date of Service: February 11, 2025
Pt c/o mild incisional pain, otherwise feels well
Objective Data
-
Lab Results
02/10/25 03:12
PT 17.7 Sec (11.4-14.6) H 02/09/25 16:25
INR 1.40 02/09/25 16:25
APTT 34.5 Sec (23.4-35.0) 02/09/25 16:25
APTT Cancelled 02/09/25 16:25
Vital Signs
Vital Signs
Temp Pulse Resp BP Pulse Ox
98.1 F 116 18 110/88 97
02/11/25 04:00 02/10/25 22:45 02/11/25 04:00 02/10/25 22:29 02/11/25 04:00
CT Intake/Output/Weight
02/10/25 02/10/25 02/11/25
06:59 18:59 06:59
Intake Total 750 / 980 390 / 390
Output Total 525 / 525 150 / 150
Balance 225 / 455 240 / 240
SaO2: 97 (RA)
Physical Exam
-
General: Awake, Oriented and AOx3
Cardiovascular: Irregular rate & rhythm, No Murmurs, No Rub and No Gallop
Respiratory: Decreased Breath Sounds (at bases, otherwise clear)
Sternum: Stable
Incision: Clean, Dry, Intact and Dressing Intact
Extremities: Other (+trace edema)
Data Reviewed
-
Lab Results: Results Reviewed
Medications: Active Meds Reviewed
Chest X-Ray: Report Reviewed and Image Reviewed
ECG: Report Reviewed and Image Reviewed
[2025-02-11 05:04] LABS: Blood Urea Nitrogen 53 mg/dl (9-20); Calcium 8.4 mg/dl (8.4-10.2); Carbon Dioxide 26 mmol/L (22-30); Chloride 106 mmol/L (98-107); Estimated Creatinine Clearance 24 ml/min; Glucose 96 mg/dl (70-99); Magnesium 2.2 mg/dl (1.6-2.3); Potassium 4.2 mmol/L (3.5-5.1); Sodium 140 mmol/L (135-145)
[2025-02-11] MEDS: CALCIUM GLUCONATE 130 MG IV (05:35)
[2025-02-11] MEDS: PROTONIX 40 MG PO (08:11)
[2025-02-11] MEDS: LASIX 80 MG PO (08:11)
[2025-02-11] MEDS: LOPRESSOR 25 MG PO ×2 (08:12→09:16)
[2025-02-11] MEDS: ZYLOPRIM 300 MG PO (08:12)
[2025-02-11] MEDS: LOW STRENGTH ASPIRIN 81 MG PO (08:12)
[2025-02-11] MEDS: FLOMAX 0.4 MG PO (08:12)
[2025-02-11] MEDS: PROSCAR 5 MG PO (08:12)
--- NOTE | 2025-02-11 10:38 | W.PN.CD ---
Addendum entered and electronically signed by Josesito Salomon MD 02/11/25 13:07:
I saw and examined the patient.
The MANAGER PROTEIN's note was reviewed and I agree with the note.
Comment: f/u Dr Watts; switched atenolol to metop
Original Note:
Today's Communication / Plan
-
possible d/c home with heart monitor today for new LBBB
follow up Dr. Watts as planned
Impression / Plan
-
89 year old man with severe LFLG s/p TV TAVR with 29 Jack Layne S3 Ultra (with +2 cc BAV). Complex procedure from an access standpoint given prior AAA repair and KATINA stenting. Post procedure briefly required LMA, quickly weaned. Briefly had
slow ventricular response post-procedure, never complete heart block. Post-procedure EKG with new LBBB.
s/p TAVR:
-transfemoral TAVR 29mm 02/09/25
-LBBB post procedure, plan for home with monitor
-groins stable
New LBBB:
-monitor stable, OP monitor planned.
HTN:
-stable, low normal at times.
Atrial fibrillation:
-rates elevated, atenolol was transitioned metoprolol was increased.
-not on anticoagulation per primary guest service host secondary to prior GI bleeding and pt declined
CKD3b:
-monitor Cr post contrast/ procedure
Echo 02/10/2025
Normal LV size and function with no wall motion abnormalities.
LVEF is 55-60% by visual estimation.
Mild concentric left ventricular hypertrophy.
Dilated RV with normal appearing systolic function.
Mild to moderate eccentric mitral regurgitation.
29 mm Jack Layne TAVR. Peak/mean gradients across the aortic valve are 11/4
mmHg.
Trivial aortic regurgitation.
Moderate to severe tricuspid regurgitation.
Estimated pulmonary artery pressure of 45-50 mmHg. Assuming a right atrial
pressure of 3 mmHg.
Compared to prior from February 09, 2025, no significant change.
Physical Exam
Vital Signs/Labs
Vital Signs
Temp Pulse Resp BP Pulse Ox
98.3 F 108 22 92/58 97
02/11/25 08:00 02/11/25 09:16 02/11/25 08:00 02/11/25 09:16 02/11/25 08:00
02/10/25 02/11/25 02/12/25
06:59 06:59 06:59
Actual Weight 79.8 kg 79.2 kg
02/10/25 03:12
02/11/25 04:13
PT 17.7 Sec (11.4-14.6) H 02/09/25 16:25
INR 1.40 02/09/25 16:25
APTT 34.5 Sec (23.4-35.0) 02/09/25 16:25
APTT Cancelled 02/09/25 16:25
Magnesium 2.2 mg/dl (1.6-2.3) 02/11/25 04:13
02/02/25
12:10
Upa-Z-Gzpvifsdulz Pept 6090
Physical Exam
Constitutional: No acute distress
Cardiovascular: Pedal edema is absent and Rhythm/rate is irregular
Respiratory: Respiratory effort normal
GI: Soft, Non tender and Normal bowel sounds
Neuro/Psych: AO x 3
Other: Cardiac Device Site (Bilate groins stable, no hematoma)
Data Reviewed
-
Date of Service: February 11, 2025
EKG: Tracing Personally Visualized and interpreted (AF LBBB 11 bpm) and Other (tele: AF 90-100's)
Echo: Report Reviewed by me (Echo 02/10/25 Normal LV size and function with no wall motion abnormalities. LVEF is 55-60% by visual estimation. Mild concentric left ventricular hypertrophy. Dilated RV with normal appearing systolic function.
Mild to moderate eccentric mitral regurgitation. 29 mm Jack Layne TAVR. Peak/m)
Labs: Labs Reviewed by me
--- NOTE | 2025-02-11 16:04 | PTCARENOTE ---
Pt is AOx3, confused at times. bed and chair alarm on and audible. standby assist OOB. Will be discharged later today when son arrives. Afib on tele monitor, VS monitored. Call gore within reach.
--- NOTE | 2025-02-11 17:14 | W.PN.UPDATE ---
Update Note
Progress Note Update
Called to see patient with a 13-second pause. ZOLL pads with pacer backup at 58 bpm added. IV lactated Ringer's at 50 cc an hour started. Patient had 2 additional episodes with [address] pause[address] Drs. Lr and Mary nAne notified. Dr. Titus
notified Dr. Sifuentes for urgent temporary pacemaker wire. Discharge canceled and patient's son updated. Beta-denita on hold. Patient's last meal was breakfast.
--- NOTE | 2025-02-11 17:16 | PTCARENOTE ---
Pt having multiple pauses on tele monitor. pacer pads applied, IVF started. BP monitored q5 minutes. 99% on 2L O2. Dr Salomon at bedside. Son updated on plan. Pt NPO for temporary pacemaker today. Will continue to monitor.
--- NOTE | 2025-02-11 17:51 | ITS.CL.PN ---
Automotive Heavy Mechanic - Procedure Note
Procedure
Procedure Note:
TRANSVENOUS PACEMAKER REPORT
�
Date of Procedure: February 11, 2025
�
Referring: Josesito Salomon
�
PROCEDURES:
1. Temporary transvenous pacemaker via right internal jugular vein using ultrasound guidance.
�
INDICATION: Sinus arrest
�
ACCESS: Right internal jugular vein, 6 Hebrew sheath, under ultrasound guidance using a micropuncture kit
�
PROCEDURE DETAIL: After the usual sterile prep and drape, the right internal jugular site was locally anesthetized and a 6F vascular sheath inserted into the right internal jugular vein using a 5F micro-puncture kit with ultrasound guidance. �Using
fluoroscopic guidance, a 5F balloon-tipped pacing catheter was inserted through the right internal jugular venous sheath into the apex of the right ventricle. �The cables were connected, and settings were adjusted to confirm pacing capture. �The
sheath was sewn into place with the addition of a 'tension loop' at the skin exit site to minimize the risk of accidental dislodgement, and a sterile dressing was applied.
Limited fluoroscopy of the lung bauer revealed no obvious pneumothorax. �The patient was transferred to the CVICU in stable condition.
�
FLUORO: 4.3�min / RADIATION: 41.85mGy
�
CONCLUSIONS
Successful placement of a temporary transvenous pacemaker via right internal jugular venous access which was sutured in place
�
RECOMMENDATIONS
1. Plan for portable chest x-ray to rule out pneumothorax.
2. Repeat chest x-ray in the morning to confirm placement.
3. Plan for likely permanent pacemaker on Thursday, February 13, 2025.
��
Copy to: Josesito Salomon
�
�
--- NOTE | 2025-02-11 18:01 | PTCARENOTE ---
pt left for manager labor delivery. Report given to RN. temporary pacer box sent with pt.
--- NOTE | 2025-02-11 20:30 | PTCARENOTE ---
Patient received from Cardiac Resaw Carriage Operator via bed without difficulty. Patient A+A+Ox3. No neurological deficits noted. Patient with no c/o headache, dizziness or lightheadedness. Temporary Transvenous Pacemaker via right internal jugular venous
access - 6FR sheath - Sutured in place - KVO 0.9% NSS infusing - Bloody drainage noted in Right I.J. catheter sleeve. Pacemaker settings: DDD A-Rate 40/10/0.5 V-Rate 40/20/2.0 - V connected to box. No pacing noted. Atrial Fibrillation with
BBC. Heart rate 90-100's. Patient with no c/o chest pain, pressure or discomfort. Room air. 96%. No c/o SOB. Normoactive bowel sounds. No BM. No c/o nausea. No vomiting. Voiding without difficulty via urinal at bedside. Patient able to
move all extremities without difficulty. Right radial puncture site intact - Positive radial pulse - Positive circulation, sensation and mobility to right upper extremity. Right groin site and left groin site intact - Positive Dorsalis pedis
pulses - Positive circulation, sensation and mobility to bilateral lower extremities. Patient with no c/o back or flank pain. Patient's son at bedside. Assessment as documented.
[2025-02-11 22:23] LABS: Blood Urea Nitrogen 55 mg/dl (9-20); Calcium 8.5 mg/dl (8.4-10.2); Carbon Dioxide 27 mmol/L (22-30); Chloride 105 mmol/L (98-107); Estimated Creatinine Clearance 25 ml/min; Glucose 112 mg/dl (70-99); Magnesium 2.1 mg/dl (1.6-2.3); Sodium 139 mmol/L (135-145); eGFR 31.71
--- NOTE | 2025-02-11 22:30 | PTCARENOTE ---
Patient resting in bed without difficulty watching television. Patient A+A+Ox3. No neurological deficits noted. Lab work collected and sent per PA orders. (BMP + MAG). PA assessed patient's Temporary Transvenous Pacemaker site, settings and
tubing. KVO discontinued due to small amount of bloody drainage in Right I.J. catheter sleeve distal to Right I.J. insertion site. No c/o pain or discomfort. No bloody drainage noted elsewhere. Assessment/Interventions as documented.
[2025-02-12] VITALS (18 sets, daily range): BP systolic 96–138; BP diastolic 53–89; BMI 27.7
--- NOTE | 2025-02-12 00:30 | PTCARENOTE ---
Patient sleeping without difficulty. No further changes from previous assessment.
--- NOTE | 2025-02-12 05:21 | W.PN.CT ---
Today's Communication / Plan
-
Plan:
-No major issues overnight. Hemodynamically and neurologically in tact
-Before d/c home pt had episodes of bradycardia and pauses (22 sec x 2) necessitating cancelation of discharge and placement of temporary PW until PPM can be placed tomorrow
-Pt did not require pacing overnight, rate controlled a-fib
-BB placed on hold until PPM placement
-Postop new LBBB. Chronic a-fib, not on anticoagulation d/t hx of GI bleed, ASA only
-Repeat echo on 03/12 showed a well seated TAVR, PG/MG 08/22, trivial AI; mild-mod MR, mod-severe TR
-Groin C/D/I
-Cont. current meds (ASA, Lasix, Flomax, Finasteride, Protonix)
-F/U AM labs, pending
-PPM placement tomorrow, will make NPO after midnight
Assessment / Plan
-
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 North POD #3
Post-deployment TTE demonstrated moderate AI, thus, BAV was performed with the valve delivery balloon with an additional 2 ccs of volume with improvement in AI to trace-mild
1. Severe aortic stenosis, low-flow low gradient, depressed left ventricular ejection fraction
2. Peripheral vascular disease
3. Abdominal aortic aneurysm status post repair
4. Hypertension
5. Hyperlipidemia
6. Iliac artery aneurysm
7. Diverticular hemorrhage, contraindication to anticoagulation
8. Atrial fibrillation
9. Hiatal hernia
10. GERD
-Acute postop hypotension
-Acute postop new LBBB and prolonged QT
-Acute postop bradycardia with 22sec pause S/P temporary PW placed 02/11/25
Discussed patient care with: Cardiology, Nursing, Respiratory Therapy, Pharmacy and Care Team
Subjective
Procedure
Trans femoral TAVR with a 29 mm valve +2 cc (with postdilatation BAV) Jack TAVR valve
-
Date of Service: February 12, 2025
Pt c/o mild incisional pain, otherwise feels well
Objective Data
-
PT 17.7 Sec (11.4-14.6) H 02/09/25 16:25
INR 1.40 02/09/25 16:25
APTT 34.5 Sec (23.4-35.0) 02/09/25 16:25
APTT Cancelled 02/09/25 16:25
Vital Signs
Vital Signs
Temp Pulse Resp BP Pulse Ox
98.0 F 78 15 104/80 94
02/12/25 00:00 02/12/25 04:05 02/12/25 04:05 02/12/25 04:00 02/12/25 02:15
CT Intake/Output/Weight
02/11/25 02/11/25 02/12/25
06:59 18:59 06:59
Intake Total 960 / 1220 260 / 1220
Output Total 240 / 1140 900 / 1140
Balance 720 / 80 -640 / 80
SaO2: 94 (RA)
Physical Exam
-
General: Awake, Oriented and AOx3
Cardiovascular: Irregular rate & rhythm (a-fib), No Murmurs, No Rub and No Gallop
Respiratory: Decreased Breath Sounds (at bases)
Incision: Clean, Dry, Intact and Dressing Intact
Extremities: Other (+trace edema)
Data Reviewed
-
Lab Results: Results Reviewed
Medications: Active Meds Reviewed
Chest X-Ray: Report Reviewed and Image Reviewed
ECG: Report Reviewed and Image Reviewed
[2025-02-12 05:52] LABS: Hematocrit 25.3 % (39.0-52.0); Hemoglobin 8.6 g/dL (13.0-18.0); Mean Corpuscular Hgb 37.2 pg (27.0-31.0); Mean Corpuscular Volume 109.5 fL (80.0-94.0); Mean Platelet Volume 10.4 fL (7.4-10.4); Platelet Count 125 10^3/uL (130-400); Red Blood Cell Count 2.31 10^6/uL (4.70-6.10); Red Cell Dist. Width 19.1 % (11.5-14.5); White Blood Cell Count 4.6 10^3/uL (4.8-10.8)
--- NOTE | 2025-02-12 06:00 | PTCARENOTE ---
Patient A+A+Ox3. No neurological deficits noted. AM lab work collected and sent. Patient given CHG bath and linens changed. Serosanguineous drainage remains in distal aspect of Right I.J. catheter sleeve. Portable CXR completed. Patient
resting in bed watching television. Assessment/Interventions as documented.
[2025-02-12 06:15] LABS: Blood Urea Nitrogen 53 mg/dl (9-20); Calcium 8.8 mg/dl (8.4-10.2); Carbon Dioxide 30 mmol/L (22-30); Chloride 104 mmol/L (98-107); Estimated Creatinine Clearance 23 ml/min; Glucose 87 mg/dl (70-99); Magnesium 2.2 mg/dl (1.6-2.3); Potassium 3.8 mmol/L (3.5-5.1); Sodium 140 mmol/L (135-145); eGFR 31.71
--- NOTE | 2025-02-12 08:30 | PTCARENOTE ---
Assumed care of patient at 0700. Pt is awake, alert, and oriented. Pt with mild complaints of discomfort at right neck with IJ as well as mild back discomfort. BP 118/89 MAP 97. Pt is currently AFib with BBB HR 80's-90's. Occasional V paced beat
noted. Right IJ temporary transvenous pacer in place. Dr. North at bedside this morning, temp wire now set to VVI 40/20/2. Radial and pedal pulses palpable. Pulse oximetry 93% on room air. Pt tolerating PO. Voiding in urinal. Bilateral groin sites
intact with surgical adhesive and COMMUNICATIONS SENIOR ASSOCIATE. Right radial site intact and HAMIDA. Right IJ transvenous pacer with cordis line has fluid backed into the plastic encasing the sheath insertion, Dr. Sifuentes and Dr. North made aware. Pt is currently resting in bed
with call gore within reach.
[2025-02-12] MEDS: LASIX 80 MG PO (10:12)
[2025-02-12] MEDS: ZYLOPRIM 300 MG PO (10:12)
[2025-02-12] MEDS: LOW STRENGTH ASPIRIN 81 MG PO (10:12)
[2025-02-12] MEDS: PROTONIX 40 MG PO (10:12)
[2025-02-12] MEDS: FLOMAX 0.4 MG PO (10:12)
[2025-02-12] MEDS: TYLENOL 650 MG PO (10:12)
[2025-02-12] MEDS: PROSCAR 5 MG PO (10:12)
--- NOTE | 2025-02-12 11:00 | PTCARENOTE ---
1051 Pt asystolic on monitor. RN to bedside pt unresponsive. Temporary transvenous pacer was unhooked from box. Wire connected to temporary pacing box and began pacing. Pt regained consciousness, neurologically intact. No further interventions
required. BP 138/78 MAP 96. Pulse oximetry 93% on room air. Transvenous pacing settings changed to 60/20/2. Temporary transvenous pacer placed out of patient's reach.
[2025-02-12] MEDS: ZOFRAN 4 MG IV (11:02)
--- NOTE | 2025-02-12 11:58 | W.PN.CD ---
Today's Communication / Plan
-
NPO after midnight PPM tomorrow
Impression / Plan
-
89 year old man with severe LFLG s/p TV TAVR with 29 Jack Layne S3 Ultra (with +2 cc BAV). Complex procedure from an access standpoint given prior AAA repair and KATINA stenting. Post procedure briefly required LMA, quickly weaned. Briefly had
slow ventricular response post-procedure, never complete heart block. Post-procedure EKG with new LBBB.
s/p TAVR:
-transfemoral TAVR 29mm 02/09/25
-LBBB post procedure, plan for home with monitor
-groins stable
New LBBB with subsequent ~ 13 and 20 s pauses:
- PPM tomorrow
- TVP in place
HTN:
-stable, low normal at times.
Atrial fibrillation:
-rates elevated, atenolol was transitioned metoprolol was increased.
-not on anticoagulation per primary order checker packer processer secondary to prior GI bleeding and pt declined
CKD3b:
-monitor Cr post contrast/ procedure
Subjective: A little confused this AM but otherwise feels OK
Echo 02/10/2025
Normal LV size and function with no wall motion abnormalities.
LVEF is 55-60% by visual estimation.
Mild concentric left ventricular hypertrophy.
Dilated RV with normal appearing systolic function.
Mild to moderate eccentric mitral regurgitation.
29 mm Jack Layne TAVR. Peak/mean gradients across the aortic valve are 11/4
mmHg.
Trivial aortic regurgitation.
Moderate to severe tricuspid regurgitation.
Estimated pulmonary artery pressure of 45-50 mmHg. Assuming a right atrial
pressure of 3 mmHg.
Compared to prior from February 09, 2025, no significant change.
Physical Exam
Vital Signs/Labs
Vital Signs
Temp Pulse Resp BP Pulse Ox
98.4 F 86 17 118/89 93
02/12/25 08:00 02/12/25 09:30 02/12/25 09:30 02/12/25 08:00 02/12/25 08:30
02/11/25 02/12/25 02/13/25
06:59 06:59 06:59
Actual Weight 174 lb 9.698 oz 171 lb 11.841 oz
02/12/25 05:04
02/12/25 05:04
PT 17.7 Sec (11.4-14.6) H 02/09/25 16:25
INR 1.40 02/09/25 16:25
APTT 34.5 Sec (23.4-35.0) 02/09/25 16:25
APTT Cancelled 02/09/25 16:25
Magnesium 2.2 mg/dl (1.6-2.3) 02/12/25 05:04
02/02/25
12:10
Ork-K-Lkapcohpfzk Pept 6090
Physical Exam
Constitutional: No acute distress and Comfortable
EENT: Anicteric
Cardiovascular: Rhythm/rate is irregular
Respiratory: Respiratory effort normal and Lungs clear to auscul.
GI: Soft
Neuro/Psych: Alert and Oriented
Data Reviewed
-
Date of Service: February 12, 2025
Medical Decision Making: Reviewed Test Results
EKG: Tracing Personally Visualized and interpreted (af)
Labs: Labs Reviewed by me
--- NOTE | 2025-02-12 16:30 | PTCARENOTE ---
Pt remains AFib with BBB, occasional V-pacing. BP 119/69 MAP 79. Pulse oximetry 94% on room air. No complaints of pain at this time.
--- NOTE | 2025-02-12 20:00 | PTCARENOTE ---
Received pt [facility]. pt is POD #3 from TAVR. Pt received a transvenous pacemaker due to significant pause. plan is for PPM tomorrow 02/13/25. Pt is AAOx4. Afib with occasional Vpacing on monitor. VSS. heart sounds audible, radial and DP pulses
palpable, no edema noted, TVP is set to VVI 60/20/2. lungs clear, diminished at b/l bases, spo2 98% on RA. +BS x4 quadrants, abdomen soft, non tender, pt is NPO after midnight. pt voiding clear yellow urine. surgical sites maintained. right IJ
cordis/TVP maintained, blood present in plastic tubing of TVP, CVPA aware. PIV maintained. call gore within reach. will continue to monitor.
[2025-02-13] VITALS (22 sets, daily range): BP systolic 86–137; BP diastolic 61–118; BMI 27.3
[2025-02-13] MEDS: TYLENOL 650 MG PO (02:54)
[2025-02-13 03:33] LABS: Hematocrit 25.4 % (39.0-52.0); Hemoglobin 8.6 g/dL (13.0-18.0); Mean Corp Hgb Conc. 33.9 g/dL (33.0-37.0); Mean Corpuscular Hgb 37.1 pg (27.0-31.0); Mean Corpuscular Volume 109.5 fL (80.0-94.0); Mean Platelet Volume 10.2 fL (7.4-10.4); Platelet Count 123 10^3/uL (130-400); Red Blood Cell Count 2.32 10^6/uL (4.70-6.10); Red Cell Dist. Width 18.6 % (11.5-14.5); White Blood Cell Count 4.7 10^3/uL (4.8-10.8)
[2025-02-13 03:43] LABS: Blood Urea Nitrogen 51 mg/dl (9-20); Calcium 8.4 mg/dl (8.4-10.2); Carbon Dioxide 28 mmol/L (22-30); Chloride 103 mmol/L (98-107); Estimated Creatinine Clearance 22 ml/min; Glucose 99 mg/dl (70-99); Magnesium 2.2 mg/dl (1.6-2.3); Potassium 3.7 mmol/L (3.5-5.1); Sodium 140 mmol/L (135-145)
--- NOTE | 2025-02-13 04:00 | PTCARENOTE ---
Pt assessment unchanged. tylenol given for pain. labs sent. 40mg of K ordered and given. bed weight obtained
--- NOTE | 2025-02-13 04:01 | W.PN.CT ---
Today's Communication / Plan
-
Plan:
-No major issues overnight. Hemodynamically and neurologically in tact
-Before d/c home on 02/11, pt had episodes of bradycardia and pauses (22 sec x 2) necessitating cancelation of discharge and placement of temporary PW
-NPO for PPM placement today
-BB placed on hold until PPM placement
-Will replete K, 3.7
-Postop new LBBB. Chronic a-fib, not on anticoagulation d/t hx of GI bleed, ASA only
-Repeat echo on 03/12 showed a well seated TAVR, PG/MG /, trivial AI; mild-mod MR, mod-severe TR
-Groin C/D/I
-Cont. current meds (ASA, Lasix, Flomax, Finasteride, Protonix)
-Home likely tomorrow
Assessment / Plan
-
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 North POD #4
Post-deployment TTE demonstrated moderate AI, thus, BAV was performed with the valve delivery balloon with an additional 2 ccs of volume with improvement in AI to trace-mild
1. Severe aortic stenosis, low-flow low gradient, depressed left ventricular ejection fraction
2. Peripheral vascular disease
3. Abdominal aortic aneurysm status post repair
4. Hypertension
5. Hyperlipidemia
6. Iliac artery aneurysm
7. Diverticular hemorrhage, contraindication to anticoagulation
8. Atrial fibrillation
9. Hiatal hernia
10. GERD
-Acute postop hypotension
-Acute postop new LBBB and prolonged QT
-Acute postop bradycardia with 22sec pause S/P temporary PW placed 02/11/25
Discussed patient care with: Cardiology, Nursing, Respiratory Therapy, Pharmacy and Care Team
Subjective
Procedure
Trans femoral TAVR with a 29 mm valve +2 cc (with postdilatation BAV) Jack TAVR valve
-
Date of Service: February 13, 2025
Pt offers no complaints
Objective Data
-
Lab Results
02/13/25 03:10
02/13/25 03:00
PT 17.7 Sec (11.4-14.6) H 02/09/25 16:25
INR 1.40 02/09/25 16:25
APTT 34.5 Sec (23.4-35.0) 02/09/25 16:25
APTT Cancelled 02/09/25 16:25
Vital Signs
Vital Signs
Temp Pulse Resp BP Pulse Ox
98.4 F 95 20 118/67 98
02/13/25 00:00 02/13/25 01:00 02/13/25 01:00 02/13/25 00:00 02/13/25 00:00
CT Intake/Output/Weight
02/12/25 02/12/25 02/13/25
06:59 18:59 06:59
Intake Total 260 / 1220
Output Total 1100 / 1340 950 / 1325 375 / 1325
Balance -840 / -120 -950 / -1325 -375 / -1325
SaO2: 98 (RA)
Physical Exam
-
General: Awake, Oriented and AOx3
Cardiovascular: Irregular rate & rhythm and No Murmurs
Respiratory: Clear
Extremities: Other (+trace edema)
Data Reviewed
-
Lab Results: Results Reviewed
Medications: Active Meds Reviewed
Chest X-Ray: Report Reviewed and Image Reviewed
ECG: Report Reviewed and Image Reviewed
[2025-02-13] MEDS: KCL 40 MEQ PO (04:18)
--- NOTE | 2025-02-13 08:35 | W.PN.CD ---
Today's Communication / Plan
-
PPM today
Impression / Plan
-
89 year old man with severe LFLG s/p TV TAVR with 29 Jack Layne S3 Ultra (with +2 cc BAV). Complex procedure from an access standpoint given prior AAA repair and KATINA stenting. Post procedure briefly required LMA, quickly weaned. Briefly had
slow ventricular response post-procedure, never complete heart block. Post-procedure EKG with new LBBB. On POD #2, patient had new prolonged pauses of ~20 second x2. TVP placed and planned for PPM today.
s/p TAVR:
-transfemoral TAVR 29mm 02/09/25
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
-groins stable
-plan for PPM today
HTN:
-stable, low normal at times.
Atrial fibrillation:
-rates elevated, atenolol was transitioned metoprolol was increased
-not on anticoagulation per primary political reporter secondary to prior GI bleeding, eventual consideration for Watchman
CKD3b:
-monitor Cr post contrast/ procedure
Tele: afib, LBBB, occasional V-pacing (rare single beats)
Subjective: Doing well, no complaints
Echo 02/10/2025
Normal LV size and function with no wall motion abnormalities.
LVEF is 55-60% by visual estimation.
Mild concentric left ventricular hypertrophy.
Dilated RV with normal appearing systolic function.
Mild to moderate eccentric mitral regurgitation.
29 mm Jack Layne TAVR. Peak/mean gradients across the aortic valve are 11/4
mmHg.
Trivial aortic regurgitation.
Moderate to severe tricuspid regurgitation.
Estimated pulmonary artery pressure of 45-50 mmHg. Assuming a right atrial
pressure of 3 mmHg.
Compared to prior from February 09, 2025, no significant change.
Physical Exam
Vital Signs/Labs
Vital Signs
Temp Pulse Resp BP Pulse Ox
36.9 C 95 20 118/67 98
02/13/25 00:00 02/13/25 01:00 02/13/25 01:00 02/13/25 00:00 02/13/25 04:03
02/12/25 02/13/25 02/14/25
06:59 06:59 06:59
Actual Weight 77.9 kg 76.7 kg
02/13/25 03:10
02/13/25 03:00
PT 17.7 Sec (11.4-14.6) H 02/09/25 16:25
INR 1.40 02/09/25 16:25
APTT 34.5 Sec (23.4-35.0) 02/09/25 16:25
APTT Cancelled 02/09/25 16:25
Magnesium 2.2 mg/dl (1.6-2.3) 02/13/25 03:00
02/02/25
12:10
Oiu-B-Ddpaykgayie Pept 6090
Physical Exam
Constitutional: No acute distress
Cardiovascular: Rhythm & rate is regular
Respiratory: Respiratory effort normal
Neuro/Psych: AO x 3
Data Reviewed
-
Date of Service: February 13, 2025
EKG: Tracing Personally Visualized and interpreted
Labs: Labs Reviewed by me
[2025-02-13] MEDS: FLOMAX 0.4 MG PO (09:27)
[2025-02-13] MEDS: LASIX 80 MG PO (09:27)
[2025-02-13] MEDS: LOW STRENGTH ASPIRIN 81 MG PO (09:27)
[2025-02-13] MEDS: ZYLOPRIM 300 MG PO (09:27)
[2025-02-13] MEDS: PROTONIX 40 MG PO (09:27)
[2025-02-13] MEDS: PROSCAR 5 MG PO (09:27)
--- NOTE | 2025-02-13 09:45 | PTCARENOTE ---
assumed care of pt from previous shift RN, betty on tele w HR 90's, VSS. Pt w pacing wire via right IJ cordis set to 60/20/2. + peripheral pulses. Lungs diminished, pox 97% on 2L NC. NPO maintained pre op. PIV to bilateral arms intact. Pt wiped w CHG
pre device. Plan of care reviewed and questions encouraged.
--- NOTE | 2025-02-13 13:53 | ITS.CL.PACE ---
Schedule Planning Manager - Pacemaker Implant
Pacemaker Implant
Procedure Report:
Left Bundle Branch pacing Permanent Pacemaker Placement:
89 yrs old man with severe LFLG s/p TV TAVR with 29 Jack Layne S3 Ultra (with +2 cc BAV). Complex procedure from an access standpoint given prior AAA repair and KATINA stenting. Post procedure briefly required LMA, quickly weaned. Briefly had
slow ventricular response post-procedure, never complete heart block. Post-procedure EKG with new LBBB. On POD #2, patient had new prolonged pauses of ~20 second x2. TVP placed and is here for PPM placement and TVP removal.
Indications:
Severe symptomatic bradycardia, and tachy stefan syndrome
Date of the Procedure:
02/13/25
Pre-Operative Diagnosis:
Severe symptomatic bradycardia, and tachy stefan syndrome
Post-Operative Diagnosis: Severe symptomatic bradycardia, and tachy stefan syndrome
Procedure Performed: Conduction system pacing Pacemaker implantation
Performing Physician:
Ashley Garibay MD
Assistants:
EP staff
Anesthesia:
See anesthesia records
Detailed Description of the Procedure:
The patient was identified using hospital identification and informed consent obtained for the procedure. The risks were explained to the patient and the family including, but not limited to: Bleeding, infection, arrhythmia, stroke,
vascular/cardiac/lung puncture, surgery, pacemaker dependency/device malfunction. All questions were answered.
Anesthesia service provided sedation as reported separately. Antibiotics administered IV for risk of bacterial colonization. After obtaining informed and written consent, the patient was brought to the electrophysiology laboratory.
The initial rhythm was atrial fibrillation.
The left chest was prepped from the nipple to the angle of the jaw with chlorhexidine, and draped following sterile technique in usual routine.�
A surgical pause and time out was performed immediately prior to the procedure with review of her medical history, recent labs, allergies and medications with site of procedure identified and consent noted in the chart. Antibiotics pre operatively
given. All team members concurred.
The left infraclavicular region was prepped and draped in the usual sterile fashion. Local anesthesia was administered subcutaneously using 1% lidocaine / Bupivacaine. The left cephalic vein cutdown was performed with an incision at the
delto-pectoral groove, and vascular sheaths were introduced for lead access. Guidewires were placed and were advanced into the right ventricle and the right atrium.
The guide wire was advanced to the RA and was crossed through the tricuspid valve into the RV. The preformed curved long hemostatic peel away HIS sheath was advanced into the RV cavity. A left bundle pacing wire was advanced into the sheath to the
tip with ventricular signals noted with unipolar manner. The HIS location was identified under guidance of the flouroscopy and the pacing wire signals. The sheath with the pacing lead was moved deeper into the RV cavity on the septum at a more
inferior and distal to the HIS signals.
Once adequate signals were noted on the electrograms of the pacing lead in the sheath with W pattern signals on the RV septum. There was sheath approximation confirmed on NEPALI view and the pacing lead was advanced with clockwise turns into the septal
location. The lead was advanced and clockwise turns were done under fluoroscopic guidance. The septum was engaged and the lead was paced intermittently after every 2-3 turns. The ventricular capture was monitored throughout and the captures
gradually changed from RV pacing to non-selective pacing to LBB pacing with R wave on V1.
With RBBB pattern noted on the pacing lead, it was decided to accept the location as optimal location. The long guiding sheath was cut and removed from the RV without change in lead position, impedance, sensing, or capture. The lead was sutured to
the underlying pectoralis fascia with 2-0 Ethibond stitches.
Then the atrial lead was placed with active fixation to the RAA. The sensing was poor and the lead dislodged with stress testing. Another location was selected and atrial lead placed that again resulted in dislodgement. A third location had the same
effect and the decision was made to proceed with passive lead.
Using a peel away 7Fr sheath, atrial lead was placed in the right atrial appendage with passive fixation. Excellent impedance noted. Sensing was adequate of the atrial fibrillation waves. The threshold could not be tested due to atrial fibrillation.
The leads were attached to the pulse generator in standard configuration with acceptable sensing and threshold parameters. The pocket was created using blunt dissection. Excellent hemostasis achieved. The pocket was irrigated with antibiotic
solution; the pocket was inspected with no active bleeding noted. The device and the leads were placed in the pocket.
The device was anchored to the underlying fascia using 2-0 Ethibond suture.
A TYRX pouch was installed in the pocket around the lead and the generator.
Deep subcutaneous tissues were closed with three layers of 2-0 V Loc sutures; and the dermis was reopposed using a running 4-0 Monocryl subcuticular suture. Sponge counts / sharp counts were appropriate.
Procedure End:
The procedure was tolerated well. Aquacel bandaged was applied.
Estimated Blood loss:
10 cc
Specimens Removed:
No cultures and no specimens were obtained. No intraoperative pathology was identified.
Urine output:
None
Packs / Drains/ Tubes:
None
Instrument / Sponge Count Correct:
Yes
Flouro time:
4.6min / 17 mGy
Complications of the Procedure:
None
Condition of Patient at Time of Transfer:
Hemodynamically stable with no neurological or vascular compromise.
Device information:�
Generator: Mapidy; Model: W1DR01; Serial # [id number]�
����������� Atrial Lead: Mapidy; Model: 4574-53; Serial # [id number]��
����������������������� Measured data in the right atrium was sensing of 0.4 mV, impedance of 418 ohms and threshold not tested due to AF.
����������� RV LBB pacing lead: Medtronic; Model: 3830-69; Serial # [id number]
����������������������� Measured data on the RV lead was sensing of 14.5mV, impedance of 551 ohms and threshold of 1.0 V at 0.4ms.
PROGRAMMING PARAMETERS:�
Stefan parameter settings were DDDR 60-130
����������� Paced AV interval: 180ms
����������� Sensed AV interval: 150 ms.
����������� Rate Adaptive A-V Interval: on
Mode switched to VVI 60 due to AF.
Summary:
Successful implantation of dual chamber MRI compatible conduction system (LBB) pacing Medtronic pacemaker.
Results/Recommendations:
-Please follow up CXR�
1. Please provide patient with adequate pain control�
Instructions to be given to patient:�
- Please follow up with [facility] at [address] [place] [address] ([phone]) to get your wound checked in 2 weeks of your discharge. Then follow with
- Do not wet incision site until after it is evaluated at cardiology clinic. No baths or showers until then. Sponge baths / showers are OK but dab dry the dressing after it is wet.�
- Allow 'steri strips' to fall off on their own�
- Do not lift left elbow above shoulder, particularly with sudden jerking movements, for 1 month�
- Do not lift anything weighing more than 5 pounds with the left arm for 1 month�
- If you notice any fevers, shortness of breath, lightheadedness, chest pain, or worsening swelling in the wound site, please contact the arrhythmia clinic, contact your youth career specialist, or present to the hospital for evaluation.�
Ashley Garibay MD
Electrophysiology
[2025-02-13] MEDS: LR 500 IV (14:58)
--- NOTE | 2025-02-13 16:05 | CM ---
Reviewed chart. Mr. Isaacs was transferred to IVU. Prior to admission he resides alone in an apartment with elevator. Will need to see his current functional level to see if he will have any skilled care needs. He will need auth. withhis insurance
if he will need SNF. Medical work-up in progress. The discharge plan is to return home with a home visit by the Transitional Care Nurse versus SNF/Rehab. if indicated when medically stable.
--- NOTE | 2025-02-13 18:45 | PTCARENOTE ---
~1430: patient out of CCL/EP lab. Pt Aox4 speech garbled, Afib 110s-120s on tele, 98% 6L facemask upon arrive, switched to NC and placed on 4L. Pt denies pain at this time. Limb immobilizer in place. L upper chest incision covered withsteristrips
and aquacel, dressing CDI. R IJ previous sheath site CDI at this time and eccymotic. SBP 80s-90s, 500cc LR bolus given per order. All needs met at this time, call gore within reach.
~1500: O2 weaned to 2L NC, satting 95%
~1630: Patient weaned to RA. LR bolus completed, BP 105/74.
~ 1745: Patient left unit with transport via stretcher for post-op CXR.
~1720: patiennt back to unit from CXR via stretcher.
~3203-3647: Patient in bed. Garbled speech improved as patient woke up from anesthesia. AOx4, RA, Afib 110s-120s. Handoff report given to nightshift RN.
--- NOTE | 2025-02-13 18:47 | PTCARENOTE ---
~5112-9243: Handoff report received from bhavna RN. Pt A x self and place at this time; 93% on RA; SBP 90s-100s. Pt c/o 6/10 back pain, scheduled lidocaine patch applied, pt refuses offer of any other meds at this time. Frequent turning and
repositioning utilized. Foam applied to sacrum and spine and heels. Buttock pink and blanchable. Heels elevated off bed. Purewick in place, perineum cleansed, desenex powder applied. All needs met at this time, call gore within reach.
~4045-3092: Patient in bed at this time. NPO for PPM procedure. gave consent with Dr. Garibay this AM.
~1230: Gave report to EP lab. HR 96 atach at this time.
~1258: Patient has 3.5 second pause, then HR 46, appears junctional. EP lab aware.
~1320: Vanco started, EP lab transfered patient to procedure area. HR remains 46 at this time.
~1530: Received report from labor relations analyst/EP lab.
~1600: Patient back from labor relations analyst/EP with R sided PPM. Site dressed with steristrips and acquacel, CDI at this time, limb immobilizer on. EKG obtained, AV paced at this time rate 60. Call gore within reach.
~1730: Crushed amio in applesauce, patient had difficulty swallowing and said 'it feels stuck,' patient also visibly had difficulty swallowing. Vitamin D2 gel capsule held, Dr. Ennis made aware, verbal order placed for swallow eval.
~7524-6319: Portable chest xray for post-op PPM insertion check. Handoff report given to gibson BUTLER.
[2025-02-13] MEDS: ANCEF 5 IV (19:30)
[2025-02-13] MEDS: LOPRESSOR 25 MG PO (20:26)
--- NOTE | 2025-02-13 23:52 | PTCARENOTE ---
Received patient at change of shift. Afib with a BBB on the monitor, HR in the 100s. L chest pacemaker dressing in place, L arm immobilizer on. Educated pt on activity restrictions, pt verbalizes understanding. No complaints from pt at this time,
call gore within reach.
[2025-02-14] VITALS (47 sets, daily range): BP systolic 73–126; BP diastolic 45–100; PULSE 60–66; BMI 27.1
[2025-02-14] MEDS: ANCEF 5 IV (03:42)
[2025-02-14 04:06] LABS: Hematocrit 27.4 % (39.0-52.0); Hemoglobin 9.2 g/dL (13.0-18.0); Mean Corp Hgb Conc. 33.6 g/dL (33.0-37.0); Mean Corpuscular Hgb 37.1 pg (27.0-31.0); Mean Corpuscular Volume 110.5 fL (80.0-94.0); Mean Platelet Volume 9.7 fL (7.4-10.4); Platelet Count 120 10^3/uL (130-400); Red Blood Cell Count 2.48 10^6/uL (4.70-6.10); Red Cell Dist. Width 19.3 % (11.5-14.5); White Blood Cell Count 4.7 10^3/uL (4.8-10.8)
[2025-02-14 04:34] LABS: Blood Urea Nitrogen 46 mg/dl (9-20); Calcium 8.4 mg/dl (8.4-10.2); Carbon Dioxide 33 mmol/L (22-30); Chloride 103 mmol/L (98-107); Estimated Creatinine Clearance 22 ml/min; Glucose 99 mg/dl (70-99); Magnesium 2.3 mg/dl (1.6-2.3); Potassium 4.1 mmol/L (3.5-5.1); Sodium 139 mmol/L (135-145)
--- NOTE | 2025-02-14 05:09 | W.PN.CT ---
Today's Communication / Plan
-
Plan:
-No major issues overnight. Hemodynamically and neurologically intact
-Before d/c home on 02/11, pt had episodes of bradycardia and pauses (22 sec x 2) necessitating cancelation of discharge and placement of temporary PW
-Pt underwent PPM placement yesterday 02/13. Pocket intact, arm sling applied
-Resumed BB, BP dropped with 25 mg Toprol post PPM yesterday and needed IV fluids, may not be able to increase to home dose of 50 mg BID Toprol
-Postop new LBBB. Chronic a-fib, not on anticoagulation d/t hx of GI bleed, ASA only
-Repeat echo on 03/12 showed a well seated TAVR, PG/MG 08/22, trivial AI; mild-mod MR, mod-severe TR
-Groin C/D/I
-Cont. current meds (ASA, Lasix, Flomax, Finasteride, Protonix)
-PT/OT assessing for Home vs acute rehab/SNF today
Assessment / Plan
-
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 North POD #5
Post-deployment TTE demonstrated moderate AI, thus, BAV was performed with the valve delivery balloon with an additional 2 ccs of volume with improvement in AI to trace-mild
-S/p temporary PW placement, 02/11/25
-S/P PPM placement, 02/13/25
1. Severe aortic stenosis, low-flow low gradient, depressed left ventricular ejection fraction
2. Peripheral vascular disease
3. Abdominal aortic aneurysm status post repair
4. Hypertension
5. Hyperlipidemia
6. Iliac artery aneurysm
7. Diverticular hemorrhage, contraindication to anticoagulation
8. Atrial fibrillation
9. Hiatal hernia
10. GERD
-Acute postop hypotension
-Acute postop new LBBB and prolonged QT
-Acute postop bradycardia with 22sec pause S/P temporary PW placed 02/11/25
Discussed patient care with: Cardiology, Nursing, Respiratory Therapy, Pharmacy and Care Team
Subjective
Procedure
Trans femoral TAVR with a 29 mm valve +2 cc (with postdilatation BAV) Jack TAVR valve
-
Date of Service: February 14, 2025
Pt c/o mild incisional pain, otherwise feels well
Objective Data
-
Lab Results
02/14/25 03:41
02/14/25 03:41
PT 17.7 Sec (11.4-14.6) H 02/09/25 16:25
INR 1.40 02/09/25 16:25
APTT 34.5 Sec (23.4-35.0) 02/09/25 16:25
APTT Cancelled 02/09/25 16:25
Vital Signs
Vital Signs
Temp Pulse Resp BP Pulse Ox
98.6 F 103 18 109/53 95
02/14/25 03:25 02/13/25 20:26 02/14/25 03:25 02/13/25 20:26 02/14/25 03:25
CT Intake/Output/Weight
02/13/25 02/13/25 02/14/25
06:59 18:59 06:59
Output Total 375 / 1325 975 / 975
Balance -375 / -1325 -975 / -975
SaO2: 95 (RA)
Physical Exam
-
General: Awake, Oriented and AOx3
Cardiovascular: Irregular rate & rhythm and No Murmurs
Respiratory: Clear
Sternum: Stable
Incision: Clean, Dry, Intact and Dressing Intact
Extremities: Other (+trace edema)
Data Reviewed
-
Lab Results: Results Reviewed
Medications: Active Meds Reviewed
Chest X-Ray: Report Reviewed and Image Reviewed
ECG: Report Reviewed and Image Reviewed
[2025-02-14] MEDS: CALCIUM GLUCONATE 130 MG IV (05:45)
--- NOTE | 2025-02-14 07:37 | W.PN.CD ---
Today's Communication / Plan
-
- Amiodarone for rate control
- PPM site looks good.
Impression / Plan
-
89 year old man with severe LFLG s/p TV TAVR with 29 Jack Layne S3 Ultra (with +2 cc BAV). Complex procedure from an access standpoint given prior AAA repair and KATINA stenting. Post procedure briefly required LMA, quickly weaned. Briefly had
slow ventricular response post-procedure, never complete heart block. Post-procedure EKG with new LBBB. On POD #2, patient had new prolonged pauses of ~20 second x2. TVP placed and planned for PPM today.
Intermittent heart block
- 22 second pause
- temp wire was placed and was removed after permanent PPM placement
- Medtronic dual chamber - conductin system pacer - 02/13/25
s/p TAVR:
-transfemoral TAVR 29mm 02/09/25
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
-groins stable
-s/p PPM 02/13/25
HTN:
-stable, low normal at times.
Atrial fibrillation:
-rates elevated, Could not tolerated high dose of Metoprolol yesterday
-Still in AF with RVR - does not want anticoagulation
-Will start Amiodarone IV and PO 400 mg BID for a week then plan to continue 200 mg QD for three months.
-not on anticoagulation per primary global clinical leader secondary to prior GI bleeding, eventual consideration for Watchman
CKD3b:
-monitor Cr post contrast/ procedure
Tele: afib, LBBB, occasional V-pacing (rare single beats)
Subjective: Doing well, no complaints
Echo 02/10/2025
Normal LV size and function with no wall motion abnormalities.
LVEF is 55-60% by visual estimation.
Mild concentric left ventricular hypertrophy.
Dilated RV with normal appearing systolic function.
Mild to moderate eccentric mitral regurgitation.
29 mm Jack Layne TAVR. Peak/mean gradients across the aortic valve are 11/4
mmHg.
Trivial aortic regurgitation.
Moderate to severe tricuspid regurgitation.
Estimated pulmonary artery pressure of 45-50 mmHg. Assuming a right atrial
pressure of 3 mmHg.
Compared to prior from February 09, 2025, no significant change.
Physical Exam
Vital Signs/Labs
Vital Signs
Temp Pulse Resp BP Pulse Ox
98.6 F 103 18 109/53 95
02/14/25 03:25 02/13/25 20:26 02/14/25 03:25 02/13/25 20:26 02/14/25 05:15
02/13/25 02/14/25 02/15/25
06:59 06:59 06:59
Actual Weight 76.7 kg
02/14/25 03:41
02/14/25 03:41
PT 17.7 Sec (11.4-14.6) H 02/09/25 16:25
INR 1.40 02/09/25 16:25
APTT 34.5 Sec (23.4-35.0) 02/09/25 16:25
APTT Cancelled 02/09/25 16:25
Magnesium 2.3 mg/dl (1.6-2.3) 02/14/25 03:41
02/02/25
12:10
[id number] Pept 6090
Physical Exam
Constitutional: No acute distress and Comfortable
EENT: Anicteric and Moist mucous membranes
Cardiovascular: JVD pressure is normal, Rhythm/rate is irregular and Systolic murmur present
Respiratory: Respiratory effort normal and Wheeze Absent
GI: Soft, Non tender and Normal bowel sounds
Neuro/Psych: Alert, Oriented and AO x 3
Other: Cardiac Device Site
Data Reviewed
-
Date of Service: February 14, 2025
Medical Decision Making: Reviewed Test Results, Test Interpretation and Review of Case with other Provider
EKG: Tracing Personally Visualized and interpreted
X-Ray/CT/US/MRI/NUC/PET: Image Personally Visualized and interpreted
Labs: Labs Reviewed by me
Old Records: Reviewed
[2025-02-14] MEDS: LASIX 80 MG PO (07:58)
[2025-02-14] MEDS: PROTONIX 40 MG PO (07:58)
[2025-02-14] MEDS: ZYLOPRIM 300 MG PO (07:59)
[2025-02-14] MEDS: PACERONE 400 MG PO ×2 (07:59→21:15)
[2025-02-14] MEDS: PROSCAR 5 MG PO (07:59)
[2025-02-14] MEDS: FLOMAX 0.4 MG PO (07:59)
[2025-02-14] MEDS: LOW STRENGTH ASPIRIN 81 MG PO (08:00)
[2025-02-14] MEDS: LOPRESSOR 25 MG PO (08:00)
[2025-02-14] MEDS: CORDARONE 103 MG IV (08:08)
--- NOTE | 2025-02-14 14:32 | CM ---
Reviewed chart. Met with Mr. Isaacs to review discharge plans. He states prior to admission he resides alone in a first floor apartment without any steps to enter. He states prior to admission he was independent with ambulation and adls. He states
he does not have any DME in the home. He states he has a prescription plan and uses [facility]. We reviewed SNF rehab. at [facility] or [facility] due to being in-network provider. He is not sure he wants to consider
SNF/Rehab. Will see how he does in therapy tomorrow and review SNF/Rehab. again if indicated. Will need pre-cert with his insurance for SNF/Rehab. Medial work-up in progress. The discharge plan is to return home with [facility] versus
SNF/Rehab. if he is agreeable, bed available and approved by insurance when medically stable.
--- NOTE | 2025-02-14 18:45 | PTCARENOTE ---
~3503-4064: Handoff report received from nightshift RN. Pt Aox4, Afib BBB 80s-100s, high 90s RA. pt denies pain at this time. Aquacel dressing on L upper chest from PPM insertion yesterday, minimal old drainage on dressing, arm immobilizer in place
until 1400. Amio bolus given per order, HR then 60s-80. Lasix given per order. Around 0930, patietn OOB with PT and SBP 70s, pt asymptomatic. Rechecked 10 mins later once pt back in bed and BP 91/60, provider made aware. All needs met at this time,
call gore within reach.
~5451-2690: Patient resting in room. Afib 80s BBB. Limb immobilizer off at 1400 per protocol.
~5040-7952: Pt resting, denies pain at this time. VSS. All needs met, call gore within reach. handoff report given to nightshift RN.
[2025-02-14] MEDS: TYLENOL 650 MG PO (21:16)
[2025-02-14] MEDS: TOPROL XL 25 MG PO (21:16)
[2025-02-15] VITALS (12 sets, daily range): BP systolic 76–113; BP diastolic 59–74; PULSE 88; BMI 27.1
--- NOTE | 2025-02-15 01:59 | PTCARENOTE ---
Pt. AAOx3 this shift, VSS, A-fib 80's with some V/AV pacing. Left chest wall pacer site dressing intact with some old drainage (scant), left hand sensation intact, radial pulse WNL. Complaining of some discomfort at pacer site, adequately relieved
by Tylenol. Voiding into urinal without difficulty. Currently sleeping.
[2025-02-15 04:15] LABS: Blood Urea Nitrogen 45 mg/dl (9-20); Calcium 8.4 mg/dl (8.4-10.2); Carbon Dioxide 31 mmol/L (22-30); Chloride 101 mmol/L (98-107); Estimated Creatinine Clearance 20 ml/min; Glucose 101 mg/dl (70-99); Magnesium 2.3 mg/dl (1.6-2.3); Potassium 4.1 mmol/L (3.5-5.1); Sodium 139 mmol/L (135-145); eGFR 26.81
[2025-02-15] MEDS: CALCIUM GLUCONATE 130 MG IV (05:14)
--- NOTE | 2025-02-15 05:40 | W.PN.CT ---
Today's Communication / Plan
-
Plan:
-No major issues overnight. Hemodynamically and neurologically intact
-Before d/c home on 02/11, pt had episodes of bradycardia and pauses (22 sec x 2) necessitating cancelation of discharge and placement of temporary PW
-Pt underwent PPM placement 02/13. Pocket intact, arm sling applied
-Resumed BB, BP dropped again yesterday 02/14 on Lasix and Metoprol Tartrate. Will hold Lasix and switch BB to Metoprolol Succinate 25 BID
-Cardiology have add Amiodarone 400 BID for rate control
-Postop new LBBB. Chronic a-fib, not on anticoagulation d/t hx of GI bleed, ASA only
-Repeat echo on 03/12 showed a well seated TAVR, PG/MG 08/22, trivial AI; mild-mod MR, mod-severe TR
-Groin C/D/I
-Cont. current meds (ASA, Lasix, Flomax, Finasteride, Protonix)
-PT/OT assessing for Home vs acute rehab/SNF today (Son available to pick him up @ 4pm)
Assessment / Plan
-
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 North POD #6
Post-deployment TTE demonstrated moderate AI, thus, BAV was performed with the valve delivery balloon with an additional 2 ccs of volume with improvement in AI to trace-mild
-S/p temporary PW placement, 02/11/25
-S/P PPM placement, 02/13/25
1. Severe aortic stenosis, low-flow low gradient, depressed left ventricular ejection fraction
2. Peripheral vascular disease
3. Abdominal aortic aneurysm status post repair
4. Hypertension
5. Hyperlipidemia
6. Iliac artery aneurysm
7. Diverticular hemorrhage, contraindication to anticoagulation
8. Atrial fibrillation
9. Hiatal hernia
10. GERD
-Acute postop hypotension
-Acute postop new LBBB and prolonged QT
-Acute postop bradycardia with 22sec pause S/P temporary PW placed 02/11/25
Discussed patient care with: Cardiology, Nursing, Respiratory Therapy, Pharmacy and Care Team
Subjective
Procedure
Trans femoral TAVR with a 29 mm valve +2 cc (with postdilatation BAV) Jack TAVR valve
-
Date of Service: February 15, 2025
Pt offers no complaints. Wants to go home and says son will be available to pick him up ~4pm
Objective Data
-
Lab Results
02/14/25 03:41
02/15/25 03:18
PT 17.7 Sec (11.4-14.6) H 02/09/25 16:25
INR 1.40 02/09/25 16:25
APTT 34.5 Sec (23.4-35.0) 02/09/25 16:25
APTT Cancelled 02/09/25 16:25
Vital Signs
Vital Signs
Temp Pulse Resp BP Pulse Ox
97.9 F 94 20 99/69 97
02/15/25 03:12 02/15/25 03:00 02/15/25 03:12 02/15/25 03:02 02/15/25 03:12
CT Intake/Output/Weight
02/14/25 02/14/25 02/15/25
06:59 18:59 06:59
Intake Total 480 / 480
Output Total 900 / 900
Balance -420 / -420
SaO2: 97 (RA)
Physical Exam
-
General: Awake, Oriented and AOx3
Cardiovascular: Regular rate & rhythm, No Murmurs, No Rub and No Gallop
Respiratory: Decreased Breath Sounds (at bases, otherwise clear)
Incision: Clean, Dry and Intact
Extremities: Other (+trace edema)
Data Reviewed
-
Lab Results: Results Reviewed
Medications: Active Meds Reviewed
Chest X-Ray: Report Reviewed and Image Reviewed
ECG: Report Reviewed and Image Reviewed
--- NOTE | 2025-02-15 08:21 | W.PN.CD ---
Today's Communication / Plan
-
- stable and acceptable rate for discharge.
- Amiodarone 400 mg BID for 1 week then 200 mg QD.
- Follow up in EP in 2 weeks.
- Incision check in 1-2 weeks.
Impression / Plan
-
89 year old man with severe LFLG s/p TV TAVR with 29 [place] S3 Ultra (with +2 cc BAV). Complex procedure from an access standpoint given prior AAA repair and KATINA stenting. Post procedure briefly required LMA, quickly weaned. Briefly had
slow ventricular response post-procedure, never complete heart block. Post-procedure EKG with new LBBB. On POD #2, patient had new prolonged pauses of ~20 second x2. TVP placed and planned for PPM today.
Intermittent heart block
- 22 second pause
- temp wire was placed and was removed after permanent PPM placement
- Medtronic dual chamber - conductin system pacer - 02/13/25
s/p TAVR:
-transfemoral TAVR 29mm 02/09/25
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
-groins stable
-s/p PPM 02/13/25
HTN:
-stable, low normal at times.
Atrial fibrillation:
-Currently in AT with short break leading to pacing spikes and then restart of arrhythmia.
- Rates are much improved with Amiodarone and Metoprolol.
- H/o AF with RVR - does not want anticoagulation
-Continue Amiodarone PO 400 mg BID for a week then plan to continue 200 mg QD for three months.
-not on anticoagulation per primary dough panner secondary to prior GI bleeding, eventual consideration for Watchman
CKD3b:
-monitor Cr post contrast/ procedure
Tele: AT, LBBB, occasional V-pacing (rare single beats) with short breaks in AT.
Subjective: Doing well, no complaints
Echo 02/10/2025
Normal LV size and function with no wall motion abnormalities.
LVEF is 55-60% by visual estimation.
Mild concentric left ventricular hypertrophy.
Dilated RV with normal appearing systolic function.
Mild to moderate eccentric mitral regurgitation.
29 mm [place] TAVR. Peak/mean gradients across the aortic valve are 11/4
mmHg.
Trivial aortic regurgitation.
Moderate to severe tricuspid regurgitation.
Estimated pulmonary artery pressure of 45-50 mmHg. Assuming a right atrial
pressure of 3 mmHg.
Compared to prior from February 09, 2025, no significant change.
Physical Exam
Vital Signs/Labs
Vital Signs
Temp Pulse Resp BP Pulse Ox
98.1 F 94 18 99/69 95
02/15/25 08:00 02/15/25 03:00 02/15/25 08:00 02/15/25 03:02 02/15/25 08:00
02/14/25 02/15/25 02/16/25
06:59 06:59 06:59
Actual Weight 76.2 kg 76.2 kg
02/14/25 03:41
02/15/25 03:18
PT 17.7 Sec (11.4-14.6) H 02/09/25 16:25
INR 1.40 02/09/25 16:25
APTT 34.5 Sec (23.4-35.0) 02/09/25 16:25
APTT Cancelled 02/09/25 16:25
Magnesium 2.3 mg/dl (1.6-2.3) 02/15/25 03:18
02/02/25
12:10
Gcp-[id number] Pept 6090
Physical Exam
Constitutional: No acute distress and Comfortable
EENT: Anicteric and Moist mucous membranes
Cardiovascular: Rhythm & rate is regular, Pedal edema is absent and JVD pressure is normal
Respiratory: Respiratory effort normal, Lungs clear to auscul. and Wheeze Absent
GI: Soft, Distention absent and Normal bowel sounds
Neuro/Psych: Alert, Oriented and AO x 3
Other: Cardiac Device Site
Data Reviewed
-
Date of Service: February 15, 2025
Medical Decision Making: Reviewed Test Results, Test Interpretation and Review of Case with other Provider
EKG: Tracing Personally Visualized and interpreted (Tele: AT with rates in 90s. With slower rates, now AT can be distinguished from AF. )
Echo: Report Reviewed by me
Labs: Labs Reviewed by me
Old Records: Reviewed
[2025-02-15] MEDS: ZYLOPRIM 300 MG PO (08:27)
[2025-02-15] MEDS: PROTONIX 40 MG PO (08:27)
[2025-02-15] MEDS: LOW STRENGTH ASPIRIN 81 MG PO (08:28)
[2025-02-15] MEDS: PROSCAR 5 MG PO (08:28)
[2025-02-15] MEDS: PACERONE 400 MG PO (08:28)
[2025-02-15] MEDS: TYLENOL 650 MG PO ×2 (08:36→16:12)
[2025-02-15] MEDS: TOPROL XL 12.5 MG PO (08:38)
[2025-02-15] MEDS: MILK OF MAGNESIA 30 ML PO (08:38)
[2025-02-15] MEDS: TOPROL XL PO (10:05)
--- NOTE | 2025-02-15 12:32 | CM ---
Reviewed chart. Me with Mr. Isaacs to review discharge plans. He states he is feeling well and maybe able to go home soon. We reviewed [facility] for nursing and physical therapy. He is agreeable to [facility]. Telephone call to [facility]
Service Intake to make the referral. Sent the referral. Prior to admission he resides lone in a first floor apartment without any steps to enter. Prior to admission he was independent with ambulation and adls. He ambulates here with a single
point cane and walker here. At this time Mr. Isaacs does not want me to get him a walker. He will just take the script for a walker home with him. He has a prescription plan and uses [facility]. Medical work-up in progress. The discharge
plan is to return home with [facility] when medically stable.
--- NOTE | 2025-02-15 18:38 | PTCARENOTE ---
~[id number]: Handoff report received from nightshift RN. Pt AOx4, Afib BBB and occassionally A paced or AV paced 80s-90s. SBPs 90s-110s. Toprol xl changed to 12.5mg by CLUB ROOM ATTENDANT. Pt OOB chair with Ax1. Pt c/o L shoulder pain at PPM incision site, PRN pain
meds offered, pt request tylenol. PRN MOM given for no BM >3 days. All needs met at this time, call gore within reach.
~[id number]: Patient walked halls with PT. Pt standby assist with walker. SBP did drop to 70s, however pt asymptomatic and SBP returned to 100s at rest in recliner, CLUB ROOM ATTENDANT made aware, no new orders.
~[id number]: Pt OOB in chair, VSS at this time. Pt assisted into personal clothing. Awaiting family to arrive for discharge.
~[id number]: Pt discharged to home with family. Dishcarge insructions explained, all questions answered. IV and tele removed. Patient wheeled down to main lobby in wheelchair by staff.
== END 2025-02-15 18:39 | disposition home or self-care (01) | DRG 267 ==
LOC: IVU 09:34
PROVIDERS: Internal Medicine Cardiovascular Disease; Internal Medicine Interventional Cardiology; Nurse Practitioner; Physician Assistant Medical; ADMITTING PHYSICIAN Thoracic Surgery (Cardiothoracic Vascular Surgery); CONSULT PHYSICIAN Student in an Organized Health Care Education/Training Program; FAMILY PHYSICIAN Family Medicine; OTHER PHYSICIAN Internal Medicine Cardiovascular Disease
PROC: 02RF38Z Replacement of Aortic Valve with Zooplastic Tissue, Percutaneous Approach (ICD-10-PCS; 2025-02-09)
PROC: 02HK3JZ Insertion of Pacemaker Lead into Right Ventricle, Percutaneous Approach (ICD-10-PCS; 2025-02-11)
PROC: 5A1223Z Performance of Cardiac Pacing, Continuous (ICD-10-PCS; 2025-02-11)
PROC: 0JH606Z Insertion of Pacemaker, Dual Chamber into Chest Subcutaneous Tissue and Fascia, Open Approach (ICD-10-PCS; 2025-02-13)
PROC: 02H63JZ Insertion of Pacemaker Lead into Right Atrium, Percutaneous Approach (ICD-10-PCS; 2025-02-13)
DX: I35.0 Nonrheumatic aortic (valve) stenosis (principal); Z00.6 Encounter for examination for normal comparison and control in clinical research program; I48.20 Chronic atrial fibrillation, unspecified; N18.30 Chronic kidney disease, stage 3 unspecified; I12.9 Hypertensive chronic kidney disease with stage 1 through stage 4 chronic kidney disease, or unspecified chronic kidney disease; I73.9 Peripheral vascular disease, unspecified; K21.00 Gastro-esophageal reflux disease with esophagitis, without bleeding; K44.9 Diaphragmatic hernia without obstruction or gangrene; I72.3 Aneurysm of iliac artery; E78.5 Hyperlipidemia, unspecified; I44.7 Left bundle-branch block, unspecified; I95.81 Postprocedural hypotension; R09.02 Hypoxemia; I49.5 Sick sinus syndrome; D63.1 Anemia in chronic kidney disease; Z79.01 Long term (current) use of anticoagulants; Z79.52 Long term (current) use of systemic steroids; Z79.82 Long term (current) use of aspirin; Z79.899 Other long term (current) drug therapy; Z86.73 Personal history of transient ischemic attack (TIA), and cerebral infarction without residual deficits; Z86.79 Personal history of other diseases of the circulatory system
CPT/HCPCS: 93308; 33208; 33210; 33361; 36415; 71045; 71046; 80048; 80053; 81003; 82248; 82330; 83036; 83735; 83880; 85025; 85027; 85347; 85610; 85730; 86850; 86900; 86901; 87070; 93005; 93321; 93325; 97116; 97162; 97166; 97530; C1760; C1769; C1785; C1887; C1892; C1894; C1898; Q9967

== ENCOUNTER 2025-03-15 16:05 | Outpatient (RCR) | payer OTHER, SELFPAY | END 2025-03-15 23:59 | disposition home or self-care (01) | LOC: CRHB 16:05 | PROVIDERS: ATTENDING PHYSICIAN Internal Medicine Cardiovascular Disease | DX: Z95.2 Presence of prosthetic heart valve (principal); I50.32 Chronic diastolic (congestive) heart failure | CPT/HCPCS: 93797; 93798 ==